=== PATIENT | female | born 1955 | race Caucasian/White ===

== ENCOUNTER 2016-07-27 09:10 | Emergency (ER) | payer BC ==
[~2016-07-27] VITALS: Ht 151.1 cm; Wt 114.3 kg
[~2016-07-27 09:10] MED LIST: DICL1TAB5 PO; LOSA50TA6 PO; MULT-842 PO; MULT1PAK6 PO; MULTTAB58 PO; SALI1SPR3
[2016-07-27 09:14] VITALS: TEMP 36.7; Ht 151.1 cm; Wt 114.3 kg
[2016-07-27 09:47] LABS: BASO % 0.2 %; BASO ABS # 0.02 K/uL (0-0.2); COMPLETE YES; EOS % 2.1 %; HEMATOCRIT 31.4 % (37-47); IG% 0.3 %; LYMPH % 12.8 %; MEAN CORPUSCULAR HGB CONC 34.1 g/dl (32-36); MEAN PLATELET VOLUME 9.5 fL (7.4-10.4); MONO % 7.3 %; NEUT % 77.3 %; PLATELET COUNT 302 K/uL (130-400); RED BLOOD COUNT 3.45 M/uL (4.2-5.4); WHITE BLOOD COUNT 9.36 K/uL (4.8-10.8)
--- NOTE | 2016-07-27 09:48 | EMERGENCY ROOM VISIT NOTE ---
History Report prepared by D[place]rell: Abhishek Stein Under the Supervision of: Dr. Mario Kapadia D.O. First contact with patient: 09:20 Chief Complaint: ABDOMINAL PAIN Stated Complaint: HERNIA IN THE BELLY AREA History of Present Illness The patient is a 60 year old female who presents to the Emergency Room with complaints of worsening abdominal pain that started around 0700 this morning. She says that she has a hernia and her doctor said that if her pain got bad, that the patient should come here. The patient says she has not seen a surgeon for the hernia due to some apprehension on her part. She says that the pain is around her belly button and radiates across her abdomen. The patient notes that when she got up to go to the bathroom this morning, she started to get a pain on her left flank as well. The pain is described to currently be a 6 out of 10 in severity, but she says the pain is waning and she thinks it is just residual now. The patient denies any nausea, vomiting, chest pain, or shortness of breath. The patient has a history of back surgery for stenosis. She has hypertension. She does not use tobacco products or drink alcohol. Source of History: patient Onset: 0700 this morning Position: abdomen Symptom Intensity: currently a 6/10 in severity Timing: worsening Associated Symptoms: No SOB, No chest pain, No nausea, No vomiting Note: Associated symptoms: Left flank pain. Review of Systems See HPI for pertinent positives & negatives. A total of 10 systems reviewed and were otherwise negative. Past Medical & Surgical Medical Problems: (1) Asthma (2) Hypertension Nos (3) Hypothyroidism Nos (4) Morbid Obesity Surgical Problems: (1) History of back surgery Family History FH: cancer FH: diabetes mellitus FH: hypertension Social History Smoking Status: Never Smoker Alcohol Use: none Marital Status: Occupation Status: unemployed, disabled Current/Historical Medications Scheduled Albuterol Hfa (Ventolin Hfa), 1 PUFF INH Q4 Chlorthalidone (Hygroton), 25 MG PO HS Dextromethorphan-Guaifenesin (Robitussin Cough+Chest Co 10-200 mg), 2 CAP PO BID Fluticasone Propionate (Nasal) (Flonase Allergy Relief), 2 SPRAY LYNN DAILY Losartan Potassium (Cozaar), 100 MG PO HS Saline (Saline Nasal [place]), Unknown Dose NA DAILY Scheduled PRN Diclofenac (Voltaren ), 50 MG PO BID PRN for Pain Allergies Coded Allergies: Penicillins (Verified Allergy, Mild, RASH, 07/27/16) Physical Exam Vital Signs Date Time Temp Pulse Resp B/P Pulse Ox O2 Delivery O2 Flow Rate FiO2 07/27/16 12:57 89 18 149/91 98 Room Air 07/27/16 11:17 76 18 144/84 97 07/27/16 09:14 36.7 91 18 159/86 97 Room Air Physical Exam GENERAL: Patient is awake, alert, and in no acute distress. Patient is resting comfortably and showing no signs of anxiety EYES: The conjunctivae are clear. The pupils are round and reactive. EARS, NOSE, MOUTH AND THROAT: The nose is without any evidence of any deformity. Mucous membranes are moist tongue is midline NECK: The neck is nontender and supple. RESPIRATORY: Normal respiratory effort is noted there is no evidence of wheezing rhonchi or rales CARDIOVASCULAR: Regular rate and rhythm noted there no murmurs rubs or gallops normal S1 normal S2 GASTROINTESTINAL: The abdomen was mildly distended but soft. Umbilical hernia noted, which was nontender. Left lower quadrant tenderness to palpation, but no guarding or rigidity. MUSCULOSKELETAL/EXTREMITIES: There is no evidence of gross deformity full range of motion is noted in the hips and shoulders SKIN: There is no obvious evidence of any rash. There are no petechiae, pallor or cyanosis noted. NEUROLOGIC: Patient is awake alert and oriented x3. Medical Decision & Procedures ER Provider Diagnostic Interpretation: Radiology results as stated below per my review and radiologist interpretation: CT OF THE ABDOMEN AND PELVIS WITHOUT CONTRAST CLINICAL HISTORY: Left-sided abdominal pain. Umbilical hernia. COMPARISON STUDY: No previous studies for comparison. TECHNIQUE: Axial images of the abdomen and pelvis were obtained without IV contrast. Images were reviewed in the axial, sagittal, and coronal planes. FINDINGS: Visualized portions of the lower chest demonstrate a small hiatal hernia. There is fatty infiltration of the liver. Unenhanced images of the adrenal glands, spleen and pancreas are normal. Multiple bilateral renal calculi are noted. The largest is a 6 m calculus within the lower pole of the right kidney. There is no hydronephrosis. There are no ureteral calculi. Evaluation is compromised by by streak artifact from lumbar spine hardware. There is a fat-containing umbilical hernia which represents the palpable abnormality. No bowel loops are present within the hernia sac. The defect within the anterior abdominal wall measures 2.3 cm in transverse dimension. Pelvic calcifications represent phleboliths. There is no lymphadenopathy within the abdomen or the pelvis. Colonic diverticulosis is noted without evidence of acute diverticulitis. There is no free air, pneumatosis or portal venous gas. The appendix is likely visualized and is normal. IMPRESSION: 1. Fat-containing umbilical hernia which represents the palpable abnormality. 2. Bilateral nephrolithiasis. No ureteral calculi or hydronephrosis. 3. Fatty liver. 4. Colonic diverticulosis without evidence for acute diverticulitis. Electronically signed by: Shayne Lema M.D. 07/27/2016 10:05 AM Dictated Date/Time: 07/27/2016 9:57 AM SINGLE VIEW CHEST CLINICAL HISTORY: Cough. FINDINGS: An AP, portable, upright chest radiograph is obtained. No prior studies are available for comparison at the time of dictation. The examination is degraded by portable technique, large body habitus, and patient rotation. The heart is top normal for projection. The mediastinal contour is within normal limits. The lungs and pleural spaces are clear. No pneumothorax is seen. The skeletal structures are osteopenic. The bony thorax is grossly intact. Degenerative change is noted in the shoulders and thoracic spine. IMPRESSION: No active disease in the chest. Electronically signed by: Gucci Mcghee M.D. 07/27/2016 10:55 AM Dictated Date/Time: 07/27/2016 10:54 AM Laboratory Results 07/27/16 09:30 Red Blood Count 3.45, Mean Corpuscular Volume 91.0, Mean Corpuscular Hemoglobin 31.0, Mean Corpuscular Hemoglobin Concent 34.1, Mean Platelet Volume 9.5, Neutrophils (%) (Auto) 77.3, Lymphocytes (%) (Auto) 12.8, Monocytes (%) (Auto) 7.3, Eosinophils (%) (Auto) 2.1, Basophils (%) (Auto) 0.2, Neutrophils # (Auto) 7.23, Lymphocytes # (Auto) 1.20, Monocytes # (Auto) 0.68, Eosinophils # (Auto) 0.20, Basophils # (Auto) 0.02 07/27/16 09:30 Test 07/27/16 09:30 07/27/16 10:00 White Blood Count 9.36 K/uL (4.8-10.8) Red Blood Count 3.45 M/uL (4.2-5.4) Hemoglobin 10.7 g/dL (12.0-16.0) Hematocrit 31.4 % (37-47) Mean Corpuscular Volume 91.0 fL (80-100) Mean Corpuscular Hemoglobin 31.0 pg (25-34) Mean Corpuscular Hemoglobin Concent 34.1 g/dl (32-36) Platelet Count 302 K/uL (130-400) Mean Platelet Volume 9.5 fL (7.4-10.4) Neutrophils (%) (Auto) 77.3 % Lymphocytes (%) (Auto) 12.8 % Monocytes (%) (Auto) 7.3 % Eosinophils (%) (Auto) 2.1 % Basophils (%) (Auto) 0.2 % Neutrophils # (Auto) 7.23 K/uL (1.4-6.5) Lymphocytes # (Auto) 1.20 K/uL (1.2-3.4) Monocytes # (Auto) 0.68 K/uL (0.11-0.59) Eosinophils # (Auto) 0.20 K/uL (0-0.5) Basophils # (Auto) 0.02 K/uL (0-0.2) RDW Standard Deviation 42.8 fL (36.4-46.3) RDW Coefficient of Variation 12.8 % (11.5-14.5) Immature Granulocyte % (Auto) 0.3 % Immature Granulocyte # (Auto) 0.03 K/uL (0.00-0.02) Anion Gap 8.0 mmol/L (3-11) Est Creatinine Clear Calc Drug Dose 61.3 ml/min Estimated GFR () 62.8 Estimated GFR (Non- 54.1 BUN/Creatinine Ratio 21.5 (10-20) Calcium Level 9.3 mg/dl (8.5-10.1) Total Bilirubin 0.5 mg/dl (0.2-1) Direct Bilirubin 0.1 mg/dl (0-0.2) Aspartate Amino Transf (AST/SGOT) 17 U/L (15-37) Alanine Aminotransferase (ALT/SGPT) 26 U/L (12-78) Alkaline Phosphatase 115 U/L (45-117) Total Protein 8.0 gm/dl (6.4-8.2) Albumin 3.8 gm/dl (3.4-5.0) Lipase 149 U/L (73-393) Chemistry Specimen Hemolysis Urine Color YELLOW Urine Appearance CLEAR (CLEAR) Urine pH 5.0 (4.5-7.5) Urine Specific [place] 1.013 (1.000-1.030) Urine Protein NEG (NEG) Urine Glucose (UA) NEG (NEG) Urine Ketones NEG (NEG) Urine Occult Blood NEG (NEG) Urine Nitrite NEG (NEG) Urine Bilirubin NEG (NEG) Urine Urobilinogen NEG (NEG) Urine Leukocyte Esterase NEG (NEG) Laboratory results per my review. Medications Administered Medications (Trade) Dose Ordered Sig/Kavya Route Start Time Stop Time Status Last Admin Dose Admin Sodium Chloride (Nss 1000ml) 1,000 ml @ 999 mls/hr Q1H1M STAT IV 07/27/16 10:34 07/27/16 11:34 DC 07/27/16 10:46 999 MLS/HR ED Course 0924: The patient was evaluated in room A4B. A complete history and physical examination were performed. 1034: Ordered NSS 1000 ml @ 999 mls/hr IV. 1144: I reevaluated and updated the patient. 1148: I discussed the patient with Pamela Patel PA-C - surgery - she will come see the patient. 1252: I discussed the patient with Dr. Omkar AGRAWAL surgery. 1253: Upon reevaluation, the patient is resting comfortably. I discussed the results and treatment plan with her. She verbalized agreement of the treatment plan. She was discharged home. Medical Decision Triage Nursing notes reviewed. Differential diagnosis: Etiologies such as appendicitis, diverticulitis, PUD, biliary pathology, UTI, pancreatitis, obstruction, mesenteric ischemia, aortic pathology, infections, inflammatory bowel disease, renal colic, as well as others were entertained. The patient is a 60-year-old female who presented to the emergency department for an evaluation of abdominal pain. The patient has a history of an umbilical hernia. She also has been suffering with an upper respiratory infection for the last 3 weeks and is been coughing. The patient felt that she had significant increase in the pain in her umbilical hernia. This pain significantly improved prior to arrival. She does not describe an incarcerated hernia but the degree of pain made us concerned that she may have an incarcerated hernia at least one point. I discussed the patient's laboratory and radiographic studies with her. She was treated with IV fluids in the emergency department but did not wish to have any pain medication. The patient was found have anemia and I'm unsure where this is coming from. She denies having any black stool or bloody stool. The patient also had a mild elevation in her creatinine. I discussed her case with the on-call surgical group. They've agreed to evaluate the patient in emergency department for further management and disposition. Consults Time Called: 1148 Consulting Physician: Pamela Patel PA-C - surgery Returned Call: [phone] I discussed the patient with Pamela Patel PA-C - surgery - she will come see the patient. Additional Consults: Time Called: -- Consulted Physician: Dr. Omkar PELAEZ surgery Returned Call: [phone] Additional Comments: I discussed the patient with Dr. Omkar PELAEZ surgery. Impression Primary Impression: Umbilical hernia Additional Impressions: Anemia Dehydration Scribe Attestation The scribe's documentation has been prepared under my direction and personally reviewed by me in its entirety. I confirm that the note above accurately reflects all work, treatment, procedures, and medical decision making performed by me. Departure Information Dispostion Home / Self-Care Prescriptions Albuterol Hfa (VENTOLIN HFA) 200 Puffs/38889 Mcg Aers 1 PUFF INH Q4, #1 INHALER Prov: Mario Kapadia, 07/27/16 Referrals Pamela Yoo PA-C (PCP) Alicia Espitia MD Forms HOME CARE DOCUMENTATION FORM, IMPORTANT VISIT INFORMATION, Work Instructions Patient Instructions Hernia, My [facility] Additional Instructions Follow-up with the surgeon this week as scheduled. Continue all medications as prescribed. Follow-up with your family this week as well. I would recommend a repeat CBC as well as a repeat electrolyte panel to follow-up your hemoglobin and your creatinine both of which were abnormal today in the ER. Problem Qualifiers
--- NOTE | 2016-07-27 10:07 | DIAGNOSTIC IMAGING REPORT ---
CT OF THE ABDOMEN AND PELVIS WITHOUT CONTRAST CLINICAL HISTORY: Left-sided abdominal pain. Umbilical hernia. COMPARISON STUDY: No previous studies for comparison. TECHNIQUE: Axial images of the abdomen and pelvis were obtained without IV contrast. Images were reviewed in the axial, sagittal, and coronal planes. FINDINGS: Visualized portions of the lower chest demonstrate a small hiatal hernia. There is fatty infiltration of the liver. Unenhanced images of the adrenal glands, spleen and pancreas are normal. Multiple bilateral renal calculi are noted. The largest is a 6 m calculus within the lower pole of the right kidney. There is no hydronephrosis. There are no ureteral calculi. Evaluation is compromised by by streak artifact from lumbar spine hardware. There is a fat-containing umbilical hernia which represents the palpable abnormality. No bowel loops are present within the hernia sac. The defect within the anterior abdominal wall measures 2.3 cm in transverse dimension. Pelvic calcifications represent phleboliths. There is no lymphadenopathy within the abdomen or the pelvis. Colonic diverticulosis is noted without evidence of acute diverticulitis. There is no free air, pneumatosis or portal venous gas. The appendix is likely visualized and is normal. IMPRESSION: 1. Fat-containing umbilical hernia which represents the palpable abnormality. 2. Bilateral nephrolithiasis. No ureteral calculi or hydronephrosis. 3. Fatty liver. 4. Colonic diverticulosis without evidence for acute diverticulitis. Electronically signed by: Shayne Lema M.D. 07/27/2016 10:05 AM Dictated Date/Time: 07/27/2016 9:57 AM
[2016-07-27 10:15] LABS: BUN/CREATININE RATIO 21.5 (10-20); CALCIUM 9.3 mg/dl (8.5-10.1); POTASSIUM 3.8 mmol/L (3.5-5.1)
[2016-07-27] MEDS ORDERED: FLUT0.15 NAE (10:23)
[2016-07-27] MEDS ORDERED: DEXT1CAP PO (10:23)
[2016-07-27] MEDS ORDERED: HYG/25 PO (10:23)
[2016-07-27 10:33] LABS: CREATININE 1.1 mg/dl (0.60-1.20)
[2016-07-27] MEDS ORDERED: SODIUM CHLORIDE 0.9% 1000ML 1,000 ML IV STA (10:34)
--- NOTE | 2016-07-27 10:57 | DIAGNOSTIC IMAGING REPORT ---
SINGLE VIEW CHEST CLINICAL HISTORY: Cough. FINDINGS: An AP, portable, upright chest radiograph is obtained. No prior studies are available for comparison at the time of dictation. The examination is degraded by portable technique, large body habitus, and patient rotation. The heart is top normal for projection. The mediastinal contour is within normal limits. The lungs and pleural spaces are clear. No pneumothorax is seen. The skeletal structures are osteopenic. The bony thorax is grossly intact. Degenerative change is noted in the shoulders and thoracic spine. IMPRESSION: No active disease in the chest. Electronically signed by: Gucci Mcghee M.D. 07/27/2016 10:55 AM Dictated Date/Time: 07/27/2016 10:54 AM
[2016-07-27 11:00] LABS: URINE APPEARANCE CLEAR (CLEAR); URINE BILIRUBIN NEG (NEG); URINE COLOR YELLOW; URINE NITRITE NEG (NEG); URINE SPECIFIC GRAVITY 1.013 (1.000-1.030); UROBILINOGEN NEG (NEG)
[2016-07-27 11:01] LABS: MANUAL MICROSCOPIC REQUIRED? NO; REVIEW REQ? NO
[2016-07-27 12:57] VITALS: BP 149/91; PULSE 89; O2SAT 98
[2016-07-27] MEDS ORDERED: VNTHFA/IN INH (13:01)
--- NOTE | 2016-07-27 13:03 | Surgery Consultation ---
Consultation Date of Consultation: Jul 27, 2016. Attending Physician: Reason for Consultation: Umbilical hernia, abdominal pain History of Present Illness Sadia is a 60 year-old female who presented to emergency department this morning complaining of abdominal pain located at belly button. Sadia states she has a belly button hernia and was told by her primary care doctor to present to emergency department if the pain got severe. States this morning she has 8/10 pain at the belly button. She has a cold and has been coughing recently and felt she may of had an incarcerated hernia. No changes in bowel habits. No fevers, chills, nausea, or vomiting. States she would like to have the hernia repaired. Past Medical/Surgical History Medical Problems: (1) Anemia Status: Acute (2) Asthma Status: Chronic (3) Dehydration Status: Acute (4) Umbilical hernia Status: Acute Family History FH: cancer FH: diabetes mellitus FH: hypertension Social History Smoking Status: Never Smoker Marital Status: Occupation Status: unemployed, disabled Allergies Coded Allergies: Penicillins (Verified Allergy, Mild, RASH, 07/27/16) Home Medications Scheduled Albuterol Hfa (Ventolin Hfa), 1 PUFF INH Q4 Chlorthalidone (Hygroton), 25 MG PO HS Dextromethorphan-Guaifenesin (Robitussin Cough+Chest Co 10-200 mg), 2 CAP PO BID Fluticasone Propionate (Nasal) (Flonase Allergy Relief), 2 SPRAY LYNN DAILY Losartan Potassium (Cozaar), 100 MG PO HS Saline (Saline Nasal [place]), Unknown Dose NA DAILY Scheduled PRN Diclofenac (Voltaren ), 50 MG PO BID PRN for Pain Review of Systems Constitutional: No chills, No fever, No sweats Respiratory: + cough, No shortness of breath Cardiovascular: No chest pain Abdomen: + pain, No constipation, No diarrhea, No nausea, No vomiting Genitourinary - Female: No dysuria Integumentary: No rash Physical Exam Date Time Temp Pulse Resp B/P Pulse Ox O2 Delivery O2 Flow Rate FiO2 07/27/16 11:17 76 18 144/84 97 07/27/16 09:14 36.7 91 18 159/86 97 Room Air General Appearance: WD/WN, no apparent distress Head: normocephalic, atraumatic Eyes: sclerae normal ENT: hearing grossly normal Respiratory/Chest: no respiratory distress, no accessory muscle use Abdomen/GI: soft, + pertinent finding (Umbilical hernia, reducible, nonincarcerated, no overlying erythema or ecchymosis) Neurologic/Psych: alert, normal mood/affect, oriented x 3 Skin: normal color, warm/dry, no rash Laboratory Results Last 24 Hours Test 07/27/16 09:30 07/27/16 10:00 White Blood Count 9.36 K/uL Red Blood Count 3.45 M/uL Hemoglobin 10.7 g/dL Hematocrit 31.4 % Mean Corpuscular Volume 91.0 fL Mean Corpuscular Hemoglobin 31.0 pg Mean Corpuscular Hemoglobin Concent 34.1 g/dl Platelet Count 302 K/uL Mean Platelet Volume 9.5 fL Neutrophils (%) (Auto) 77.3 % Lymphocytes (%) (Auto) 12.8 % Monocytes (%) (Auto) 7.3 % Eosinophils (%) (Auto) 2.1 % Basophils (%) (Auto) 0.2 % Neutrophils # (Auto) 7.23 K/uL Lymphocytes # (Auto) 1.20 K/uL Monocytes # (Auto) 0.68 K/uL Eosinophils # (Auto) 0.20 K/uL Basophils # (Auto) 0.02 K/uL RDW Standard Deviation 42.8 fL RDW Coefficient of Variation 12.8 % Immature Granulocyte % (Auto) 0.3 % Immature Granulocyte # (Auto) 0.03 K/uL Sodium Level 138 mmol/L Potassium Level 3.8 mmol/L Chloride Level 102 mmol/L Carbon Dioxide Level 28 mmol/L Anion Gap 8.0 mmol/L Blood Urea Nitrogen 24 mg/dl Creatinine 1.10 mg/dl Est Creatinine Clear Calc Drug Dose 61.3 ml/min Estimated GFR () 62.8 Estimated GFR (Non- 54.1 BUN/Creatinine Ratio 21.5 Random Glucose 113 mg/dl Calcium Level 9.3 mg/dl Total Bilirubin 0.5 mg/dl Direct Bilirubin 0.1 mg/dl Aspartate Amino Transf (AST/SGOT) 17 U/L Alanine Aminotransferase (ALT/SGPT) 26 U/L Alkaline Phosphatase 115 U/L Total Protein 8.0 gm/dl Albumin 3.8 gm/dl Lipase 149 U/L Chemistry Specimen Hemolysis Urine Color YELLOW Urine Appearance CLEAR Urine pH 5.0 Urine Specific [place] 1.013 Urine Protein NEG Urine Glucose (UA) NEG Urine Ketones NEG Urine Occult Blood NEG Urine Nitrite NEG Urine Bilirubin NEG Urine Urobilinogen NEG Urine Leukocyte Esterase NEG CT OF THE ABDOMEN AND PELVIS WITHOUT CONTRAST CLINICAL HISTORY: Left-sided abdominal pain. Umbilical hernia. COMPARISON STUDY: No previous studies for comparison. TECHNIQUE: Axial images of the abdomen and pelvis were obtained without IV contrast. Images were reviewed in the axial, sagittal, and coronal planes. FINDINGS: Visualized portions of the lower chest demonstrate a small hiatal hernia. There is fatty infiltration of the liver. Unenhanced images of the adrenal glands, spleen and pancreas are normal. Multiple bilateral renal calculi are noted. The largest is a 6 m calculus within the lower pole of the right kidney. There is no hydronephrosis. There are no ureteral calculi. Evaluation is compromised by by streak artifact from lumbar spine hardware. There is a fat-containing umbilical hernia which represents the palpable abnormality. No bowel loops are present within the hernia sac. The defect within the anterior abdominal wall measures 2.3 cm in transverse dimension. Pelvic calcifications represent phleboliths. There is no lymphadenopathy within the abdomen or the pelvis. Colonic diverticulosis is noted without evidence of acute diverticulitis. There is no free air, pneumatosis or portal venous gas. The appendix is likely visualized and is normal. IMPRESSION: 1. Fat-containing umbilical hernia which represents the palpable abnormality. 2. Bilateral nephrolithiasis. No ureteral calculi or hydronephrosis. 3. Fatty liver. 4. Colonic diverticulosis without evidence for acute diverticulitis. Assessment & Plan Umbilical Hernia -vitals stable - CT scan showing fat containing umbilical hernia, no incarceration or involving bowel - Abdominal pain improving - reducible on examination Plan: Plan for patient to follow-up with Dr. Espitia as an outpatient this Wednesday to schedule for elective umbilical hernia repair with or without mesh. Thank you for the consultation and involving us in the care of this patient. Dr. Espitia has seen and examined patient, developed assessment and plan.
[2016-09-15] MEDS ORDERED: SALI1SPR3 NAE (09:51)
[2016-09-23] MEDS ORDERED: HYDR-5688 PO (06:05)
[2016-09-23] MEDS ORDERED: CIPR-255 PO (06:05)
== END 2016-07-27 13:18 | disposition home or self-care (01) ==
LOC: C.EDB 09:12 → C.EDA 13:18
DX: K42.9 Umbilical hernia without obstruction or gangrene (principal); D64.9 Anemia, unspecified; E86.0 Dehydration; I10 Essential (primary) hypertension; J45.909 Unspecified asthma, uncomplicated; E03.9 Hypothyroidism, unspecified; E66.01 Morbid (severe) obesity due to excess calories; Z68.43 Body mass index [BMI] 50.0-59.9, adult; Z80.9 Family history of malignant neoplasm, unspecified; Z83.3 Family history of diabetes mellitus; Z82.49 Family history of ischemic heart disease and other diseases of the circulatory system; Z79.899 Other long term (current) drug therapy

== ENCOUNTER 2016-09-21 06:20 | Inpatient (IN) | payer BC, OTHER ==
[2016-09-15 09:43] VITALS: BMI 51.0
--- NOTE | 2016-09-15 10:13 | PAT Medication Instructions ---
Service Date September 15, 2016. Current Home Medication List Chlorthalidone (Hygroton), 25 MG PO HS Diclofenac (Voltaren ), 50 MG PO BID PRN for Pain Losartan Potassium (Cozaar), 100 MG PO HS Saline (Saline Nasal [place]), 1 SPRAY LYNN DAILY PRN for PRN Medication Instructions For Your Scheduled Surgery - Hold the following medications the morning of surgery: Diclofenac (Voltaren ), 50 MG PO BID PRN for Pain (otherwise okay to continue per surgeon) - Take the following medications the morning of surgery: Saline (Saline Nasal [place]), 1 SPRAY LYNN DAILY PRN for PRN - Take the following medications as scheduled the night before surgery: Chlorthalidone (Hygroton), 25 MG PO HS Saline (Saline Nasal [place]), 1 SPRAY LYNN DAILY PRN for PRN Diclofenac (Voltaren ), 50 MG PO BID PRN for Pain - Do not take the following the evening prior to surgery: Losartan Potassium (Cozaar), 100 MG PO HS Nothing to eat or drink after midnight If you have any questions please call us at [phone] or [phone] or [phone]
[2016-09-15 10:59] LABS: BASO % 0.4 %; BASO ABS # 0.03 K/uL (0-0.2); COMPLETE YES; EOS % 4.3 %; HEMATOCRIT 31.2 % (37-47); IG% 0.2 %; LYMPH % 16.5 %; LYMPH ABS # 1.34 K/uL (1.2-3.4); MEAN CELL VOLUME 93.7 fL (80-100); MEAN CORPUSCULAR HEMOGLOBIN 31.8 pg (25-34); MEAN PLATELET VOLUME 10.5 fL (7.4-10.4); MONO % 7.3 %; NEUT % 71.3 %; PLATELET COUNT 274 K/uL (130-400); RED BLOOD COUNT 3.33 M/uL (4.2-5.4)
[2016-09-21] VITALS (8 sets, daily range): BP systolic 114–148; BP diastolic 68–79; PULSE 71–92; TEMP 36.4–36.8; O2SAT 94–97; Ht 149.9 cm; Wt 114.2 kg
[~2016-09-21] VITALS: Ht 149.9 cm; Wt 114.2 kg
[~2016-09-21 06:20] MED LIST changes: +CLINDAMYCIN 900MG IV SCH; +CLINDAMYCIN IV 900 MG in DEXTROSE 5% ADD-VANTAGE 100ML 100 ML IV SCH; +HYG/25 PO; +LACTATED RINGER'S 1000ML 1,000 ML IV SCH; -MULT-842 PO; -MULT1PAK6 PO; -MULTTAB58 PO; -SALI1SPR3; +SALI1SPR3 NAE
[2016-09-21] MEDS ORDERED: EpHEDrine SULFATE INJ 50 MG/ML AMP IV PRN (07:00)
[2016-09-21] MEDS ORDERED: ATROPINE SULFATE 0.1 MG/ML 5ML SYR IV PRN (07:00)
[2016-09-21] MEDS ORDERED: ONDANSETRON INJ 2 MG/ML 2 ML VIAL IV PRN (07:00)
[2016-09-21] MEDS ORDERED: MIDAZOLAM HCL 1 MG/ML 2ML VIAL ONE (07:26)
[2016-09-21] MEDS ORDERED: ROCURONIUM BROMIDE 10 MG/ML 5 ML VIAL ONE (07:26)
[2016-09-21] MEDS ORDERED: FENTANYL CITRATE INJ 50 MCG/1 ML 2 ML VIAL ONE ×2 (07:26)
[2016-09-21] MEDS ORDERED: PROPOFOL IV EMULSION 10 MG/ML 20 ML VIAL IV ONE (07:26)
[2016-09-21] MEDS ORDERED: GLYCOPYRROLATE INJ 0.2 MG/ML VIAL ONE ×2 (07:26→09:21)
[2016-09-21] MEDS ORDERED: DEXAMETHASONE SOD INJ 4 MG/ML VIAL ONE (07:26)
[2016-09-21] MEDS ORDERED: LIDOCAINE HCL 2% 2 ML VIAL (20MG/ML) ONE (07:26)
[2016-09-21] MEDS ORDERED: NEOSTIGMINE METHYLSULFATE 5 MG/5 ML SYR ONE (07:26)
[2016-09-21] MEDS ORDERED: ONDANSETRON INJ 2 MG/ML 2 ML VIAL ONE (07:26)
--- NOTE | 2016-09-21 08:29 | History & Physical Bridge Note ---
H&P Re-Evaluation Bridge Note: I have examined the patient, reviewed the History & Physical and in the interval since the performance of the History & Physical I have noted the following changes of clinical significance: No changes noted
[2016-09-21] MEDS ORDERED: CEFAZOLIN SOD 1 GM VIAL ONE (08:45)
[2016-09-21] MEDS ORDERED: BUPIVACAINE 0.5 % 5 MG/1 ML MPF 30ML VIAL ONE (08:54)
[2016-09-21] MEDS ORDERED: EpHEDrine SULFATE 50MG/5ML SYR ONE (09:21)
[2016-09-21] MEDS ORDERED: SUCCINYLCHOLINE CHLORIDE 20 MG/ML 10 ML VIAL IV ONE (09:23)
--- NOTE | 2016-09-21 09:46 | [facility] Post Operative Brief Note ---
Immediate Operative Summary Operative Date Sep 21, 2016. Pre-Operative Diagnosis Umbilical Hernia Post-Operative Diagnosis Umbilical Hernia Procedure(s) Performed Open repair umbilical hernia with mesh Surgeon Dr. Johnson Embossed Or Impressed Lettering Painter Surgeon(s) Ayse Chavez PA-C Estimated Blood Loss 10cc Findings 3-4 cm defect, used 8 cm C-Qur mesh Specimens A) Hernia contents and hernia sac Drains # 15 Rd IGLESIA to sub cu Anesthesia gen Complication(s) None Disposition Recovery Room / PACU
[2016-09-21] MEDS ORDERED: HYDROmorphone INJ 1 MG/ML SYR IV PRN ×2 (10:00)
[2016-09-21] MEDS ORDERED: HYDROCODONE/ACETAMOPHEN 5/325MG TAB PO PRN ×2 (10:00)
[2016-09-21] MEDS ORDERED: PROMETHAZINE HCL INJ 25 MG in SODIUM CHLORIDE 0.9% 50ML 50 ML IV PRN (10:00)
[2016-09-21] MEDS: FENTANYL CITRATE INJ 50 MCG/1 ML 2 ML VIAL IV PRN ×4 (10:09→10:24)
--- NOTE | 2016-09-21 10:34 | Anesthesiology Progress Note ---
Anesthesia Post Op Note Date & Time Sep 21, 2016 at 10:34 Vital Signs Pain Intensity: 2 Vital Signs Past 12 Hours Date Time Temp Pulse Resp B/P (MAP) Pulse Ox O2 Delivery O2 Flow Rate FiO2 09/21/16 10:28 73 14 09/21/16 10:28 74 14 97 09/21/16 10:27 128/75 09/21/16 10:23 77 19 09/21/16 10:23 36.6 68 16 136/75 (89) 98 Mask 2 09/21/16 10:23 78 19 99 09/21/16 10:22 136/75 09/21/16 10:18 70 12 09/21/16 10:18 70 12 99 09/21/16 10:17 140/77 09/21/16 10:14 72 12 09/21/16 10:14 72 12 98 09/21/16 10:12 137/77 09/21/16 10:09 75 12 98 09/21/16 10:09 75 12 09/21/16 10:07 145/86 09/21/16 10:04 85 14 09/21/16 10:04 85 14 100 09/21/16 10:02 146/76 09/21/16 09:59 95 14 09/21/16 09:59 96 14 100 09/21/16 09:57 148/81 09/21/16 09:56 141/85 09/21/16 09:54 36.6 12 141/85 100 Mask 10 Notes Mental Status: alert / awake / arousable, participated in evaluation Pt Amnestic to Procedure: Yes Nausea / Vomiting: adequately controlled Pain: adequately controlled Airway Patency, RR, SpO2: stable & adequate BP & HR: stable & adequate Hydration State: stable & adequate Anesthetic Complications: no major complications apparent
[2016-09-21] MEDS ORDERED: DEXTROSE 50% 50 ML SYR IV PRN (11:45)
[2016-09-21] MEDS ORDERED: GLUCOSE 40% GEL 15 GM TUBE PO PRN (11:45)
[2016-09-21] MEDS ORDERED: PROMETHAZINE HCL INJ 12.5 MG in SODIUM CHLORIDE 0.9% 50ML 50 ML IV PRN (11:45)
[2016-09-21] MEDS ORDERED: HydrALAZINE HCL 20 MG/ML VIAL IV. PRN (11:45)
[2016-09-21] MEDS ORDERED: GLUCOSE 10 TABS/TUBE PO PRN (11:45)
[2016-09-21] MEDS ORDERED: GLUCAGON FOR INJ 1 MG VIAL SQ PRN (11:45)
[2016-09-21] MEDS ORDERED: LACTATED RINGER'S 1000ML 1,000 ML IV SCH (11:45)
[2016-09-21] MEDS: ONDANSETRON INJ 2 MG/ML 2 ML VIAL IV PRN ×2 (11:47→17:46)
--- NOTE | 2016-09-21 11:59 | Medical Consult ---
Consultation Date of Consultation: Sep 21, 2016. Attending Physician: Elgin Johnson M.D. Reason for Consultation: Medical management History of Present Illness This is a 61 y/o female with a history of hypertension, diabetes mellitus type 2 , and arthritis who presents s/p umbilical hernia repair with mesh with Dr. Johnson on 09/21 for medical management. The patient complains of a 6/10 dull aching pain in her umbilical area and right lower quadrant. She also complains of nausea but denies any vomiting. Patient has not yet eaten, passed gas, or urinated postoperatively. The patient denies fevers, chills, sweats, chest pain , palpitations, claudication, cough, wheezing, shortness of breath, vomiting, dysuria, hematuria, urinary retention, paralysis, weakness, numbness and tingling. Past Medical/Surgical History Medical Problems: (1) Anemia Status: Chronic (2) Asthma Status: Chronic (3) Dehydration Status: Resolved (4) Umbilical hernia Status: Resolved Diabetes mellitus type 2 HTN Arthritis Family History FH: cancer FH: diabetes mellitus FH: hypertension Social History Smoking Status: Never Smoker Smokeless Tobacco Use: No Alcohol Use: none Marital Status: Housing Status: lives with significant other Occupation Status: retired Allergies Coded Allergies: Penicillins (Verified Allergy, Mild, RASH, 09/21/16) Metformin (Verified Adverse Reaction, Unknown, SEVERE GI UPSET, 09/21/16) Morphine (Verified Adverse Reaction, Unknown, VOMITING, 09/21/16) Current Inpatient Medications Current Inpatient Medications Medications (Trade) Dose Ordered Sig/Kavya Route Start Time Stop Time Status Last Admin Dose Admin Lactated Ringer's 1,000 ml @ 15 mls/hr Q24H IV 09/21/16 06:00 09/21/16 18:00 Clindamycin Phosphate 900 mg/ Dextrose 106 ml @ 106 mls/hr PREOP IV 09/21/16 06:00 09/21/16 18:00 09/21/16 08:31 106 MLS/HR Fentanyl Citrate (Fentanyl Inj) 25 mcg Q5M PRN IV 09/21/16 07:00 09/21/16 12:00 09/21/16 10:24 25 MCG Ondansetron HCl (Zofran Inj) 4 mg ONE PRN IV 09/21/16 07:00 09/21/16 12:00 Ephedrine Sulfate (EpHEDrine SULFATE INJ) 5 mg Q5M PRN IV 09/21/16 07:00 09/21/16 12:00 Atropine Sulfate (Atropine Sulfate 0.1MG/Ml Inj) 0.5 mg Q1M PRN IV 09/21/16 07:00 09/21/16 12:00 Chlorthalidone (Hygroton Tab) 25 mg HS PO 09/21/16 21:00 10/21/16 20:59 Future Hold Losartan Potassium (coZAAR TAB) 100 mg HS PO 09/21/16 21:00 10/21/16 20:59 Future Hold Lactated Ringer's 1,000 ml @ 50 mls/hr Q20H IV 09/21/16 11:45 10/21/16 11:44 Clindamycin Phosphate 600 mg/ Dextrose 54 ml @ 100 mls/hr Q8@0000,0800,1600 IV 09/21/16 16:00 10/01/16 15:59 Acetaminophen/ Hydrocodone Bitart ([employer] 5/325 Tab) 1 tab Q4 PRN PO 09/21/16 10:00 10/05/16 09:59 Acetaminophen/ Hydrocodone Bitart ([employer] 5/325 Tab) 2 tab Q4 PRN PO 09/21/16 10:00 10/05/16 09:59 Promethazine HCl 25 mg/Sodium Chloride 51 ml @ 204 mls/hr Q6H PRN IV 09/21/16 10:00 10/21/16 09:59 Ondansetron HCl (Zofran Inj) 4 mg Q6H PRN IV 09/21/16 10:00 10/21/16 09:59 Senna/Docusate Sodium (Senokot S Tab) 1 tab BID PO 09/21/16 13:00 10/21/16 12:59 Hydromorphone HCl (Dilaudid Inj) 0.5 mg Q3H PRN IV 09/21/16 10:00 10/05/16 09:59 Hydromorphone HCl (Dilaudid Inj) 1 mg Q3H PRN IV 09/21/16 10:00 10/05/16 09:59 Promethazine HCl 12.5 mg/Sodium Chloride 50.5 ml @ 204 mls/hr Q6H PRN IV 09/21/16 11:45 10/21/16 11:44 Insulin Aspart (novoLOG ASPART) SLIDING SCALE If C... ACHS SC 09/21/16 12:00 10/21/16 11:59 UNV Glucose (Glucose 40% Gel) 15-30 GRAMS 15 GRAMS... UD PRN PO 09/21/16 11:45 10/21/16 11:44 UNV Glucose (Glucose Chew Tab) 4-8 Tablets 4 Tabl... UD PRN PO 09/21/16 11:45 10/21/16 11:44 UNV Dextrose (Dextrose 50% 50ML Syringe) 25-50ML OF 50% DW IV FOR... UD PRN IV 09/21/16 11:45 10/21/16 11:44 UNV Glucagon (Glucagon Inj) 1 mg UD PRN SQ 09/21/16 11:45 10/21/16 11:44 UNV Hydralazine HCl (HydrALAZINE INJ) 10 mg Q6H PRN IV. 09/21/16 11:45 10/21/16 11:44 UNV Review of Systems See HPI for pertinent positives and negatives. All other systems reviewed and negative. Physical Exam Date Time Temp Pulse Resp B/P (MAP) Pulse Ox O2 Delivery O2 Flow Rate FiO2 09/21/16 10:55 Nasal Cannula 2.0 09/21/16 10:55 36.8 73 16 148/75 (99) 97 Nasal Cannula 2.0 09/21/16 10:55 97 Nasal Cannula 2.0 09/21/16 10:39 76 13 09/21/16 10:39 75 13 95 09/21/16 10:37 127/71 09/21/16 10:34 68 12 96 09/21/16 10:34 68 12 09/21/16 10:32 128/72 09/21/16 10:29 71 12 09/21/16 10:29 70 12 98 09/21/16 10:28 73 14 09/21/16 10:28 74 14 97 09/21/16 10:27 128/75 09/21/16 10:23 77 19 09/21/16 10:23 36.6 68 16 136/75 (89) 98 Mask 2 09/21/16 10:23 78 19 99 09/21/16 10:22 136/75 09/21/16 10:18 70 12 09/21/16 10:18 70 12 99 09/21/16 10:17 140/77 09/21/16 10:14 72 12 09/21/16 10:14 72 12 98 09/21/16 10:12 137/77 09/21/16 10:09 75 12 98 09/21/16 10:09 75 12 09/21/16 10:07 145/86 09/21/16 10:04 85 14 09/21/16 10:04 85 14 100 09/21/16 10:02 146/76 09/21/16 09:59 95 14 09/21/16 09:59 96 14 100 09/21/16 09:57 148/81 09/21/16 09:56 141/85 09/21/16 09:54 36.6 12 141/85 100 Mask 10 General appearance: + Morbidly obese. Well-developed, well-nourished, no apparent distress Head: Normocephalic, atraumatic Eyes: Normal inspection, PERRL, EOMI ENT: Normal ENT inspection, hearing grossly normal, pharynx normal Neck: Supple, no JVD, trachea midline Respiratory/Chest: Lungs clear to auscultation, normal breath sounds, no respiratory distress Cardiovascular: Regular rate & rhythm, no gallop, no murmur Abdomen/GI: + Umbilical region and right lower quadrant TTP. Pt with abdominal binder and drain. Normal bowel sounds, soft Extremities/Musculoskeletal: Normal inspection, no calf tenderness, no pedal edema Neurological/Psych: Alert, normal mood/affect, oriented x 3 Skin: Normal color, warm/dry, no rash Laboratory Results Last 24 Hours Test 09/21/16 06:45 09/21/16 10:05 09/21/16 11:40 09/21/16 11:43 Bedside Glucose 144 mg/dl 158 mg/dl Assessment & Plan 61 y/o female with a history of hypertension, diabetes mellitus type 2, and arthritis who presents s/p umbilical hernia repair with mesh with Dr. Johnson on 09/21 for medical management. -Pain management, DVT prophylaxis, and PT/OT as per primary team -POD #0 HTN--stable -Hold losartan for now until renal function checked and stable. PRP pending -Hold chlorthalidone while on IVF -Cover with hydralazine 10 mg IV q6h prn SBP >180 Diabetes mellitus type 2--Last HgbA1c checked in 2013 was 6.8. Pt not on any meds for this -Insulin sliding scale -Check BSGs q ac and qhs -Check HgbA1c Nausea -Zofran 4 mg IV q6h prn nausea Arthritis--stable -Hold diclofenac for now, pain management per primary team as above Thank you for this consultation. We will continue to follow. Assessment and Plan Attending Addendum: I have physically seen and examined this patient, have directed their medical care, have supervised the physician certified medical technician assistant activities, and agree with the H& P as noted above, with the following changes: NONE
[2016-09-21] MEDS ORDERED: IV FLUIDS COMPLETED PRN (12:15)
[2016-09-21 12:40] LABS: BASO % 0.2 %; BASO ABS # 0.02 K/uL (0-0.2); COMPLETE YES; EOS % 0.5 %; HEMATOCRIT 31.7 % (37-47); IG% 0.3 %; LYMPH % 7.6 %; MEAN CELL VOLUME 93.8 fL (80-100); MEAN CORPUSCULAR HEMOGLOBIN 31.1 pg (25-34); MEAN CORPUSCULAR HGB CONC 33.1 g/dl (32-36); MEAN PLATELET VOLUME 10.1 fL (7.4-10.4); MONO % 1.2 %; NEUT % 90.2 %; PLATELET COUNT 240 K/uL (130-400); RED BLOOD COUNT 3.38 M/uL (4.2-5.4); WHITE BLOOD COUNT 9.26 K/uL (4.8-10.8)
[2016-09-21] MEDS: INSULIN ASPART 100 UNITS/ML 3 ML PEN SC SCH ×3 (12:41→21:46)
[2016-09-21] MEDS: DOCUSATE SODIUM/SENNA 50/8.6MG TAB PO SCH ×2 (12:42→20:24)
--- NOTE | 2016-09-21 12:42 | OPERATIVE REPORT ---
DATE OF OPERATION: 09/21/2016 NAME OF OPERATION: Open umbilical hernia repair. PREOPERATIVE DIAGNOSIS: Umbilical hernia. POSTOPERATIVE DIAGNOSIS: Same with 3-4 cm defect. STAFF SURGEON: Elgin Johnson MD [employer]: Ayse Douglas PA-C ANESTHESIA: General. DESCRIPTION OF PROCEDURE: The patient was brought in the operating room and placed on the operating table in supine position. Her abdomen was prepped and draped in usual fashion. Pneumatic stockings and orogastric tube were placed. A transverse incision was made using 0.5% plain Marcaine to anesthetize the skin and subcutaneous tissue, carrying dissection down easily entering the sac which was relatively large approximately 7-8 cm in diameter. It contained a large amount of omentum. The omentum was constricted at the defect indicated by scar tissue. A significant portion of that omentum was excised, ligating the tissue using 2-0 silk sutures and then the remainder of the omentum easily reduced. The defect was 3-4 cm. The sac was dissected away from the fascia and subcutaneous tissue. The sac was left on the umbilicus. The umbilicus was dissected away from the fascia and then the fascia cleared approximately 3-4 cm around the defect. At this point, an 8 cm piece of C-Qur mesh was obtained and easily placed into the retrofascial space with omentum behind the mesh. Mesh was secured to the fascia using interrupted 0 Ethibond suture and then the remainder of the sac and fascia were able to be closed over the mesh using 0 chromic catgut suture. At this point, a #15 round José Miguel-Tavarez drain was placed in the subcutaneous space, secured to the skin using 3-0 nylon suture. Subcutaneous tissue reapproximated using 2-0 plain catgut suture. The umbilicus was reattached deeply down using 2-0 chromic catgut suture and then the skin reapproximated using 4-0 nylon suture. The patient was transferred to recovery room in stable condition. I attest to the content of the Intraoperative Record and any orders documented therein. Any exception s are noted below.
[2016-09-21 13:17] LABS: ESTIMATED AVERAGE GLUCOSE 154 mg/dl; HA1C FLAG Normal (Normal)
[2016-09-21 13:24] LABS: CALCIUM 8.9 mg/dl (8.5-10.1)
[2016-09-21 13:27] LABS: BUN/CREATININE RATIO 17.2 (10-20); CREATININE 1.2 mg/dl (0.60-1.20); POTASSIUM 3.9 mmol/L (3.5-5.1)
[2016-09-21] MEDS: CLINDAMYCIN IV 600 MG in DEXTROSE 5% ADD-VANTAGE 50ML 50 ML IV SCH ×2 (15:22→23:49)
[2016-09-21] MEDS ORDERED: CHLORTHALIDONE 25 MG TAB PO SCH (21:00)
[2016-09-21] MEDS ORDERED: LOSARTAN POTASSIUM 50 MG TAB PO SCH (21:00)
[2016-09-22 03:15] VITALS: BP 121/73; PULSE 94; TEMP 36.8; O2SAT 92
--- NOTE | 2016-09-22 06:25 | Surgery Progress Note ---
Surgery Progress Note Date of Service Sep 22, 2016. Subjective No nausea, No vomiting awake, alert Objective Vital Signs: Date Time Temp Pulse Resp B/P (MAP) Pulse Ox O2 Delivery O2 Flow Rate FiO2 09/22/16 03:15 36.8 94 18 121/73 (89) 92 Room Air 09/21/16 23:59 Room Air 09/21/16 22:58 36.6 92 18 118/70 (86) 94 Room Air 09/21/16 19:47 36.7 81 18 130/75 (93) 96 Room Air 09/21/16 19:40 36.5 82 18 122/72 (89) 97 Room Air 09/21/16 16:26 36.4 88 18 144/72 (96) 96 Room Air 09/21/16 15:15 Room Air 09/21/16 14:01 92 18 126/73 (90) 09/21/16 13:09 71 137/79 (98) 09/21/16 12:03 36.6 73 16 114/68 (83) 97 Nasal Cannula 2.0 09/21/16 10:55 Nasal Cannula 2.0 09/21/16 10:55 36.8 73 16 148/75 (99) 97 Nasal Cannula 2.0 09/21/16 10:55 97 Nasal Cannula 2.0 09/21/16 10:39 76 13 09/21/16 10:39 75 13 95 09/21/16 10:37 127/71 09/21/16 10:34 68 12 96 09/21/16 10:34 68 12 09/21/16 10:32 128/72 09/21/16 10:29 71 12 09/21/16 10:29 70 12 98 09/21/16 10:28 73 14 09/21/16 10:28 74 14 97 09/21/16 10:27 128/75 09/21/16 10:23 77 19 09/21/16 10:23 36.6 68 16 136/75 (89) 98 Mask 2 09/21/16 10:23 78 19 99 09/21/16 10:22 136/75 09/21/16 10:18 70 12 09/21/16 10:18 70 12 99 09/21/16 10:17 140/77 09/21/16 10:14 72 12 09/21/16 10:14 72 12 98 09/21/16 10:12 137/77 09/21/16 10:09 75 12 98 09/21/16 10:09 75 12 09/21/16 10:07 145/86 09/21/16 10:04 85 14 09/21/16 10:04 85 14 100 09/21/16 10:02 146/76 09/21/16 09:59 95 14 09/21/16 09:59 96 14 100 09/21/16 09:57 148/81 09/21/16 09:56 141/85 09/21/16 09:54 36.6 12 141/85 100 Mask 10 General Appearance: no apparent distress Respiratory/Chest: no respiratory distress Incision(s): intact, drainage (expected from IGLESIA) Laboratory Results: Results Past 24 Hours Test 09/21/16 06:45 09/21/16 10:05 09/21/16 12:07 09/21/16 12:25 Range/Units Bedside Glucose 144 158 218 70-90 mg/dl White Blood Count 9.26 4.8-10.8 K/uL Red Blood Count 3.38 4.2-5.4 M/uL Hemoglobin 10.5 12.0-16.0 g/dL Hematocrit 31.7 37-47 % Mean Corpuscular Volume 93.8 80-100 fL Mean Corpuscular Hemoglobin 31.1 25-34 pg Mean Corpuscular Hemoglobin Concent 33.1 32-36 g/dl Platelet Count 240 130-400 K/uL Mean Platelet Volume 10.1 7.4-10.4 fL Neutrophils (%) (Auto) 90.2 % Lymphocytes (%) (Auto) 7.6 % Monocytes (%) (Auto) 1.2 % Eosinophils (%) (Auto) 0.5 % Basophils (%) (Auto) 0.2 % Neutrophils # (Auto) 8.35 1.4-6.5 K/uL Lymphocytes # (Auto) 0.70 1.2-3.4 K/uL Monocytes # (Auto) 0.11 0.11-0.59 K/uL Eosinophils # (Auto) 0.05 0-0.5 K/uL Basophils # (Auto) 0.02 0-0.2 K/uL RDW Standard Deviation 45.1 36.4-46.3 fL RDW Coefficient of Variation 13.2 11.5-14.5 % Immature Granulocyte % (Auto) 0.3 % Immature Granulocyte # (Auto) 0.03 0.00-0.02 K/uL Sodium Level 138 136-145 mmol/L Potassium Level 3.9 3.5-5.1 mmol/L Chloride Level 103 98-107 mmol/L Carbon Dioxide Level 27 21-32 mmol/L Anion Gap 8.0 3-11 mmol/L Blood Urea Nitrogen 21 7-18 mg/dl Creatinine 1.20 0.60-1.20 mg/dl Est Creatinine Clear Calc Drug Dose 55.0 ml/min Estimated GFR () 56.1 Estimated GFR (Non- 48.4 BUN/Creatinine Ratio 17.2 10-20 Random Glucose 202 70-99 mg/dl Estimated Average Glucose 154 mg/dl Hemoglobin A1c 7.0 4.5-5.6 % Calcium Level 8.9 8.5-10.1 mg/dl Hepatitis C Antibody Screen NEG NEG Test 09/21/16 17:14 09/21/16 21:40 09/22/16 04:44 Range/Units Bedside Glucose 180 184 70-90 mg/dl Assessment & Plan 09/22/16- s/p Large umbilical hernia repair with mesh- monitor GI function advance activity, cont IV atbx
[2016-09-22 07:42] VITALS: BP 135/79; PULSE 86; TEMP 36.6; O2SAT 92
[2016-09-22 07:45] VITALS: O2SAT 92
[2016-09-22] MEDS: INSULIN ASPART 100 UNITS/ML 3 ML PEN SC SCH ×4 (08:00→21:35)
--- NOTE | 2016-09-22 09:47 | Anesthesiology Progress Note ---
Anesthesia Post Op Note Date & Time Sep 22, 2016 at 09:46 Vital Signs Pain Intensity: 0.0 Vital Signs Past 12 Hours Date Time Temp Pulse Resp B/P (MAP) Pulse Ox O2 Delivery O2 Flow Rate FiO2 09/22/16 07:45 92 Room Air 09/22/16 07:42 36.6 86 16 135/79 (97) 92 Room Air 09/22/16 03:15 36.8 94 18 121/73 (89) 92 Room Air 09/21/16 23:59 Room Air 09/21/16 22:58 36.6 92 18 118/70 (86) 94 Room Air Notes Mental Status: alert / awake / arousable, participated in evaluation Pt Amnestic to Procedure: Yes Nausea / Vomiting: adequately controlled Pain: adequately controlled Airway Patency, RR, SpO2: stable & adequate BP & HR: stable & adequate Hydration State: stable & adequate Anesthetic Complications: no major complications apparent
[2016-09-22 09:53] LABS: HEMATOCRIT 32.2 % (37-47); MEAN CELL VOLUME 92.8 fL (80-100); MEAN CORPUSCULAR HEMOGLOBIN 30.3 pg (25-34); MEAN CORPUSCULAR HGB CONC 32.6 g/dl (32-36); PLATELET COUNT 298 K/uL (130-400); RED BLOOD COUNT 3.47 M/uL (4.2-5.4)
[2016-09-22] MEDS: CLINDAMYCIN IV 600 MG in DEXTROSE 5% ADD-VANTAGE 50ML 50 ML IV SCH ×3 (09:55→23:34)
[2016-09-22] MEDS: DOCUSATE SODIUM/SENNA 50/8.6MG TAB PO SCH ×2 (10:00→20:34)
[2016-09-22] MEDS: MAGNESIUM HYDROXIDE SUSP 30 ML UDC PO SCH ×2 (10:02→20:36)
[2016-09-22 10:25] LABS: BUN/CREATININE RATIO 16.7 (10-20); CREATININE 1.2 mg/dl (0.60-1.20); POTASSIUM 3.8 mmol/L (3.5-5.1)
--- NOTE | 2016-09-22 11:48 | Progress Note ---
Subjective Date of Service: Sep 22, 2016. Subjective Pt evaluation today including: conversation w/ patient, conversation w/ family , physical exam, chart review, lab review, review of studies, conversation w/ inside sales consultant, review of inpatient medication list Voiding: no voiding problems Doing okay, sitting up in bedside, tolerate diet, reported current abdominal pain is 3 out of 10, No nausea vomiting Problem List Medical Problems: (1) Anemia Status: Acute (2) Asthma Status: Chronic (3) Dehydration Status: Acute (4) Umbilical hernia Status: Acute Review of Systems Constitutional: No fever, No chills, No sweats, No weight loss, No weakness, No fatigue, No problem reported Eyes: No worsening of vision, No eye pain, No redness, No discharge, No diplopia ENT: No hearing loss, No unusual epistaxis, No nasal symptoms, No sore throat, No tinnitus, No dental problems, No trouble swallowing Respiratory: No cough, No sputum, No wheezing, No shortness of breath, No dyspnea on exertion, No dyspnea at rest, No hemoptysis Cardiac: No chest pain, No orthopnea, No PND, No edema, No claudication, No palpitations Abdomen: No pain, No nausea, No vomiting, No diarrhea, No constipation Musculoskeletal: No joint pain, No muscle pain, No swelling, No calf pain Female : No dysuria, No urinary frequency, No hematuria, No incontinence, No abnormal vaginal bleeding, No vaginal discharge Neurologic: No memory loss, No paralysis, No weakness, No numbness/tingling, No vertigo, No balance problems Psychiatric: No depression symptoms, No anhedonism, No anxiety, No insomnia, No substance abuse Heme: No abnormal bleeding/bruising, No clotting problems, No swollen lymph nodes, No night sweats Endo: No fatigue, No excessive thirst, No excessive urination Skin: No rash, No itch, No new/changing skin lesions, No color change, No bleeding Objective Vital Signs Date Time Temp Pulse Resp B/P (MAP) Pulse Ox O2 Delivery O2 Flow Rate FiO2 09/22/16 07:45 92 Room Air 09/22/16 07:42 36.6 86 16 135/79 (97) 92 Room Air 09/22/16 03:15 36.8 94 18 121/73 (89) 92 Room Air 09/21/16 23:59 Room Air 09/21/16 22:58 36.6 92 18 118/70 (86) 94 Room Air 09/21/16 19:47 36.7 81 18 130/75 (93) 96 Room Air 09/21/16 19:40 36.5 82 18 122/72 (89) 97 Room Air 09/21/16 16:26 36.4 88 18 144/72 (96) 96 Room Air 09/21/16 15:15 Room Air 09/21/16 14:01 92 18 126/73 (90) 09/21/16 13:09 71 137/79 (98) 09/21/16 12:03 36.6 73 16 114/68 (83) 97 Nasal Cannula 2.0 Physical Exam General Appearance: WD/WN, no apparent distress, + obese Eyes: normal inspection, PERRL, EOMI, sclerae normal ENT: normal ENT inspection, hearing grossly normal, pharynx normal Neck: supple, no adenopathy, thyroid normal, no JVD, no carotid bruits, trachea midline Respiratory/Chest: chest non-tender, lungs clear, normal breath sounds, no respiratory distress, no accessory muscle use Cardiovascular: regular rate, rhythm, no edema, no gallop, no JVD, no murmur Abdomen: normal bowel sounds, non tender, soft, no organomegaly, no pulsatile mass Extremities: normal range of motion, non-tender, normal inspection, no pedal edema, no calf tenderness, normal capillary refill, pelvis stable Neurologic/Psychiatric: underwater roboticist II-XII nml as tested, no motor/sensory deficits, alert, normal mood/affect, oriented x 3 Skin: normal color, warm/dry, no rash Lymphatic: no adenopathy Laboratory Results Last 24 Hours Test 09/21/16 12:07 09/21/16 12:25 09/21/16 17:14 09/21/16 21:40 Bedside Glucose 218 mg/dl 180 mg/dl 184 mg/dl White Blood Count 9.26 K/uL Red Blood Count 3.38 M/uL Hemoglobin 10.5 g/dL Hematocrit 31.7 % Mean Corpuscular Volume 93.8 fL Mean Corpuscular Hemoglobin 31.1 pg Mean Corpuscular Hemoglobin Concent 33.1 g/dl Platelet Count 240 K/uL Mean Platelet Volume 10.1 fL Neutrophils (%) (Auto) 90.2 % Lymphocytes (%) (Auto) 7.6 % Monocytes (%) (Auto) 1.2 % Eosinophils (%) (Auto) 0.5 % Basophils (%) (Auto) 0.2 % Neutrophils # (Auto) 8.35 K/uL Lymphocytes # (Auto) 0.70 K/uL Monocytes # (Auto) 0.11 K/uL Eosinophils # (Auto) 0.05 K/uL Basophils # (Auto) 0.02 K/uL RDW Standard Deviation 45.1 fL RDW Coefficient of Variation 13.2 % Immature Granulocyte % (Auto) 0.3 % Immature Granulocyte # (Auto) 0.03 K/uL Sodium Level 138 mmol/L Potassium Level 3.9 mmol/L Chloride Level 103 mmol/L Carbon Dioxide Level 27 mmol/L Anion Gap 8.0 mmol/L Blood Urea Nitrogen 21 mg/dl Creatinine 1.20 mg/dl Est Creatinine Clear Calc Drug Dose 55.0 ml/min Estimated GFR () 56.1 Estimated GFR (Non- 48.4 BUN/Creatinine Ratio 17.2 Random Glucose 202 mg/dl Estimated Average Glucose 154 mg/dl Hemoglobin A1c 7.0 % Calcium Level 8.9 mg/dl Hepatitis C Antibody Screen NEG Test 09/22/16 07:59 09/22/16 09:35 Bedside Glucose 166 mg/dl White Blood Count 10.60 K/uL Red Blood Count 3.47 M/uL Hemoglobin 10.5 g/dL Hematocrit 32.2 % Mean Corpuscular Volume 92.8 fL Mean Corpuscular Hemoglobin 30.3 pg Mean Corpuscular Hemoglobin Concent 32.6 g/dl RDW Standard Deviation 44.6 fL RDW Coefficient of Variation 13.3 % Platelet Count 298 K/uL Mean Platelet Volume 10.0 fL Sodium Level 137 mmol/L Potassium Level 3.8 mmol/L Chloride Level 100 mmol/L Carbon Dioxide Level 27 mmol/L Anion Gap 10.0 mmol/L Blood Urea Nitrogen 20 mg/dl Creatinine 1.20 mg/dl Est Creatinine Clear Calc Drug Dose 55.0 ml/min Estimated GFR () 56.1 Estimated GFR (Non- 48.4 BUN/Creatinine Ratio 16.7 Random Glucose 203 mg/dl Calcium Level 9.0 mg/dl Assessment and Plan 61 y/o female with a history of hypertension, diabetes mellitus type 2, and arthritis who presents s/p umbilical hernia repair with mesh with Dr. Johnson on 09/21 Hospitalist team was requested for medical management. -Pain management, DVT prophylaxis, and PT/OT and discharge plan as per primary team -POD #1 HTN--stable - Restart losartan for now until renal function checked and stable. - Restart chlorthalidone upon discharge -Cover with hydralazine 10 mg IV q6h prn SBP >180 Diabetes mellitus type 2--Last HgbA1c checked in 2013 was 6.8. Pt not on any meds for this, stable -Insulin sliding scale -Check BSGs q ac and qhs -Check HgbA1c Nausea -Zofran 4 mg IV q6h prn nausea Arthritis--stable -Hold diclofenac for now, pain management per primary team as above Continued [facility] stay due to: home environment unsafe for pt Discharge planning: home
[2016-09-22 11:51] VITALS: BP 116/72; PULSE 88; TEMP 36.9; O2SAT 96
[2016-09-22 15:11] VITALS: BP 121/64; PULSE 84; TEMP 37; O2SAT 96
[2016-09-22 23:04] VITALS: BP 118/69; PULSE 84; TEMP 36.8; O2SAT 97
[2016-09-23] MEDS ORDERED: HYDR-5688 PO (06:05)
[2016-09-23] MEDS ORDERED: CIPR-255 PO (06:05)
--- NOTE | 2016-09-23 06:07 | Discharge Instructions ---
Discharge Instructions Date of Service Sep 23, 2016. Admission Reason for Admission: Umbilical Hernia Discharge Discharge Diagnosis / Problem: umbilical hernia Discharge Goals Goal(s): Decrease discomfort, Improve function, Improve disease control Activity Recommendations Activity Limitations: as noted below Lifting Limitations: no more than 10 pounds Exercise/Sports Limitations: until after follow-up appointment May Resume Sexual Activity: when tolerated Shower/Bathe: tomorrow Driving or Machine Use: one week SPECIAL CARE INSTRUCTIONS: * Cover incisions and change daily for comfort/drainage. * Empty drain 2-3 times per day and record. avoid constipation- may use Senokot S and Milk of magnesia twice daily as directed on the package * May use ibuprofen for pain as tolerated. * Expect some swelling and bruising. Call your doctor if: * Temperature above 101 degrees * Pain not relieved by pain medicine ordered * There is increased drainage or redness from any incision * You have any unanswered questions or concerns [phone]. FOLLOW UP VISIT: If not already scheduled, please call the office for a follow-up visit. for this Monday 09/25- drain removal OFFICE PHONE NUMBER: Dr. Johnson Office . Current Hospital Diet Patient's current hospital diet: Diabetes Type 2 Diet Discharge Diet Recommended Diet: Regular Diet Procedures Procedures Performed: Open repair umbilical hernia with mesh Pending Studies Studies pending at discharge: no Laboratory Results Hemoglobin A1c Test 09/21/16 12:25 Range/Units Estimated Average Glucose 154 mg/dl Hemoglobin A1c 7.0 H 4.5-5.6 % Medical Emergencies . Who to Call and When: Medical Emergencies: If at any time you feel your situation is an emergency, please call 911 immediately. . Non-Emergent Contact Non-Emergency issues call your: Primary Care Provider, Surgeon . "Provider Documentation" section prepared by Elgin Johnson. . VTE Core Measure Inpt VTE Proph given/why not?: SCD's
--- NOTE | 2016-09-23 06:57 | DISCHARGE SUMMARY ---
PRINCIPAL DIAGNOSIS: Umbilical hernia. PROCEDURES: The patient underwent open umbilical hernia repair with mesh. HISTORY OF PRESENT ILLNESS: The patient is a 61-year-old female with a very large umbilical hernia. HOSPITAL COURSE: The patient was brought in the hospital on 09/21/2016 where she underwent open umbilical hernia with mesh application. The patient did well with the surgery and has advanced in both diet and activity and was felt stable for discharge home today. She does have a drain in place. She will be seen in the office in approximately 2 days for drain removal and checkup.
[2016-09-23 07:31] VITALS: BP 108/72; PULSE 84; TEMP 36.5; O2SAT 93
[2016-09-23 07:36] VITALS: O2SAT 93
[2016-09-23 07:58] LABS: HEMATOCRIT 31.6 % (37-47); MEAN CELL VOLUME 94.9 fL (80-100); MEAN CORPUSCULAR HEMOGLOBIN 30.3 pg (25-34); MEAN PLATELET VOLUME 10.2 fL (7.4-10.4); PLATELET COUNT 276 K/uL (130-400); RED BLOOD COUNT 3.33 M/uL (4.2-5.4); WHITE BLOOD COUNT 7.91 K/uL (4.8-10.8)
[2016-09-23] MEDS: INSULIN ASPART 100 UNITS/ML 3 ML PEN SC SCH (08:00)
[2016-09-23] MEDS: CLINDAMYCIN IV 600 MG in DEXTROSE 5% ADD-VANTAGE 50ML 50 ML IV SCH (08:12)
[2016-09-23 08:30] LABS: BUN/CREATININE RATIO 22.6 (10-20); CREATININE 1.2 mg/dl (0.60-1.20); POTASSIUM 3.8 mmol/L (3.5-5.1)
[2016-09-23 08:47] LABS: CALCIUM 8.4 mg/dl (8.5-10.1)
[2016-09-23] MEDS: DOCUSATE SODIUM/SENNA 50/8.6MG TAB PO SCH (09:00)
[2016-09-23] MEDS: MAGNESIUM HYDROXIDE SUSP 30 ML UDC PO SCH (09:00)
[2016-09-23 10:11] VITALS: BP 108/72; PULSE 84; TEMP 36.5; O2SAT 93
== END 2016-09-23 10:30 | disposition home or self-care (01) | DRG 354 ==
LOC: C.ACU 06:20 → C.MSN 09:53 → ENRESERV 10:12 → OBSVTOIN 09-22 06:22
PROVIDERS: ADMIT Surgery; ATTEND Surgery
PROC: 0WUF0JZ Supplement Abdominal Wall with Synthetic Substitute, Open Approach (ICD-10-PCS; principal; 2016-09-21 08:05)
PROC: 0WQF0ZZ Repair Abdominal Wall, Open Approach (ICD-10-PCS; principal; 2016-09-21 08:05)
DX: K42.9 Umbilical hernia without obstruction or gangrene (principal); Z68.43 Body mass index [BMI] 50.0-59.9, adult; J34.2 Deviated nasal septum; E11.21 Type 2 diabetes mellitus with diabetic nephropathy; E66.01 Morbid (severe) obesity due to excess calories; Z80.3 Family history of malignant neoplasm of breast; E86.0 Dehydration; J45.909 Unspecified asthma, uncomplicated; M19.90 Unspecified osteoarthritis, unspecified site

== ENCOUNTER 2019-04-25 05:10 | Inpatient (IN) ==
--- NOTE | 2019-03-23 09:47 | PAT Medication Instructions ---
Medication Instructions Date of Service March 23, 2019 Home Medications chlorthalidone 25 mg PO QPM diclofenac sodium 75 mg PO BID losartan 100 mg PO QPM ASK your surgeon for instructions diclofenac sodium 75 mg PO BID Take evening before surgery chlorthalidone 25 mg PO QPM losartan 100 mg PO QPM Other Notes If you have any questions please call us at [phone] or [phone] or [phone] or [phone]
--- NOTE | 2019-03-27 14:30 | Anesthesiology Consultation ---
Date of Service March 27, 2019 Assessment & Plan (1) Encounter for pre-operative examination: - Diabetes: currently being managed with diet/exercise alone. Most recent HGBA1C increased at 7.6% on 03/08/19 labs. Patient will be seeing PCP for preop trena luation/to discuss if medication additions to be done in regards to diabetic management. Surgeon office made aware. Check BSG AM DOS. - Awaiting surgeon-ordered PCP preop evaluation (PSH)- not scheduled yet per patient/also, will need to see if diabetic medication initiation being made prior to surgery or if continuing diet/exercise management. Chart Review Chart Review: Patient seen in Pre Admission Testing Teaching & Discussion Pre-Anesthesia Teaching/Discussion Notes: Instructed NPO after midnight before surgery,except medications with 15 cc of water. Medication instructions provided according to the PAT guidelines. History Surgery Operation Date: 04/25/19 07:00 Proposed Procedures p Right Total Knee Arthroplasty - Yonatan Keene MD Height/Weight Height: 4 ft 11.5 in Weight: 111.6 kg Allergies Allergy/AdvReac Type Severity Reaction Status Date / Time Penicillins Allergy Mild RASH Verified 03/20/19 08:30 metformin AdvReac Unknown SEVERE GI Verified 03/20/19 08:30 UPSET morphine AdvReac Unknown VOMITING Verified 03/20/19 08:30 Medications Home Medications Medication Instructions Recorded Confirmed Last Taken chlorthalidone 25 mg PO QPM 03/20/19 03/20/19 Unknown diclofenac sodium 75 mg PO BID 03/20/19 03/20/19 Unknown losartan 100 mg PO QPM 03/20/19 03/20/19 Unknown Past Medical History Medical History Anemia chronic/no hx of blood transfusion Diabetes Hypertension Morbid obesity Osteoarthritis Spinal stenosis Exercise / Class Metabolic Activity III < 4 Walking/Shop/Light housework (uses cane PRN ) Past Family History Family History Mother Family history of diabetes mellitus Past Surgical History Surgical History History of lumbar fusion History of tooth extraction History of tubal ligation History of umbilical hernia repair Open umbilical hernia repair: 09/21/16: Grade 2 view, MAC#3, ETT 7.5 at [facility] (weight at time: 114kg) Past Anesthesia History No Hx of Anesthesia Complications (except PONV) and No Family Hx of Anesthesia Complications History of PONV No Hx of Motion Sickness and History of PONV Social History Smoking Status: Never smoker Do You Dip or Chew Tobacco: No Hx Alcohol Use: No Hx Substance Use: No substance use type: does not use Review of Systems Rare reflux. Patient denies chest pain, shortness of breath, cough, wheezing, palpitations. Physical Exam Vital Signs VITALS BP 133/78 P 82 TEMP 98.0 SP02 96%RA RESP 16 PHYSICAL Full neck and c-spine range of motion. Full TMJ range of motion. TMD 2.5 finger breaths (difficult to palpate) Mallampati Score 3 Dentition: chipped upper front left Lungs: clear throughout to auscultation Cardiac: regular rate and rhythm, no murmurs noted Spine: normal Carotid arteries: negative bruit Extremities: no edema Testing Laboratory Results PT 10.8 Seconds (9.0-12.0) 03/27/19 14:52 INR 1.1 (0.9-1.1) 03/27/19 14:52 APTT 27.7 Seconds (21.0-31.0) 03/27/19 14:52 Blood Type O Positive 03/27/19 14:52 Antibody Screen NEGATIVE 03/27/19 14:52 03/08/19 WBC 8.47 H/H 10.7/31.9 PLATELETS 283 SODIUM 141 POTASSIUM 4.1 CHLORIDE 105 CO2 26 BUN 10 CREATININE 1.2 GLUCOSE 176 HGBA1C 7.6% (surgeon office made aware) Average estimated glucose: 171 Electrocardiogram Date: 03/27/19 NSR at 85bpm.
[2019-03-27 16:21] LABS: INR 1.1 (0.9-1.1); Partial Thromboplastin Time 27.7 Seconds (21.0-31.0); Prothrombin Time 10.8 Seconds (9.0-12.0)
[~2019-04-25 05:10] MED LIST changes: +CEFAZOLIN: ALLERGY NOTED TO ORDERED MEDICATION SCH; -CLINDAMYCIN 900MG IV SCH; -CLINDAMYCIN IV 900 MG in DEXTROSE 5% ADD-VANTAGE 100ML 100 ML IV SCH; -DICL1TAB5 PO; -HYG/25 PO; -LACTATED RINGER'S 1000ML 1,000 ML IV SCH; -LOSA50TA6 PO; -SALI1SPR3 NAE
[2019-04-25] MEDS ORDERED: CEFAZOLIN 2000MG 2,000 MG/15 ML SYR IV SCH (06:00)
[2019-04-25] MEDS ORDERED: ROPIVACAINE 0.5% HCL/PF 150 MG, BUPIVACAINE 0.5% MPF 30 ML, EPINEPHrine 0.15 MG, Ketoro... INFIL SCH (06:00)
[2019-04-25] MEDS ORDERED: LR 500ML BOLUS, THEN 15ML/HR IV SCH (06:00)
[2019-04-25] MEDS ORDERED: SCOPOLAMINE 1.5 MG TDSY TD SCH (06:00)
[2019-04-25] MEDS ORDERED: TRANEXAMIC ACID 1,000 MG **IV Intra-op IV SCH (06:00)
[2019-04-25] MEDS ORDERED: TRANEXAMIC ACID 1,000 MG **IV Pre-op IV SCH (06:00)
[2019-04-25] MEDS ORDERED: LR 60ML/HR IV SCH (06:00)
[2019-04-25] MEDS ORDERED: CeleBREX 200 MG CAP PO SCH (06:00)
[2019-04-25] MEDS ORDERED: BUPIVACAINE 0.5 % 5 MG/1 ML PF 10ML VIAL ONE (06:19)
[2019-04-25] MEDS ORDERED: ROPIVACAINE 0.5% 5 MG/ML 30 ML VIAL ONE (06:19)
[2019-04-25] MEDS ORDERED: EPINEPHrine INJ 1 MG/ML AMP ONE (06:20)
[2019-04-25] MEDS ORDERED: fentaNYL citrate 100 MCG/2 ML VIAL ONE (06:27)
[2019-04-25] MEDS ORDERED: MIDAZOLAM HCL 1 MG/ML 2ML VIAL ONE ×2 (06:27)
--- NOTE | 2019-04-25 06:32 | History & Physical Bridge Note ---
Date of Service April 25, 2019 History & Physical Bridge Note I have examined the patient, reviewed the History & Physical and in the interval since the performance of the History & Physical I have noted the following changes of clinical significance: no changes noted
[2019-04-25] MEDS ORDERED: ORTHO JOINT ANESTHETIC ONE (06:50)
[2019-04-25] MEDS ORDERED: PROPOFOL IV EMULSION 10 MG/ML 20 ML VIAL IV ONE ×3 (07:15→08:59)
[2019-04-25] MEDS ORDERED: ONDANSETRON INJ 2 MG/ML 2 ML VIAL ONE (08:23)
[2019-04-25] MEDS ORDERED: PHENYLEPHRINE HCL 10 MG/ML VIAL ONE (08:23)
[2019-04-25] MEDS ORDERED: FLUMAZENIL 0.1 MG/1 ML 10 ML VIAL IV PRN (10:12)
[2019-04-25] MEDS ORDERED: ONDANSETRON INJ 2 MG/ML 2 ML VIAL IV PRN ×2 (10:12→10:31)
[2019-04-25] MEDS ORDERED: ePHEDrine sulfate 50 MG/ML AMP IV PRN (10:12)
[2019-04-25] MEDS ORDERED: NALOXONE HCL 0.4 MG/1 ML VIAL/CARP IV PRN ×2 (10:12→10:31)
[2019-04-25] MEDS ORDERED: PROMETHAZINE HCL 12.5 MG in SODIUM CHLORIDE 0.9% 50 ML IV PRN (10:12)
[2019-04-25] MEDS ORDERED: fentaNYL citrate 100 MCG/2 ML VIAL IV PRN (10:12)
[2019-04-25] MEDS ORDERED: ATROPINE SULFATE 0.1 MG/ML 10ML SYR IV PRN (10:12)
--- NOTE | 2019-04-25 10:13 | Post Operative Brief Note ---
Immediate Post Op Note v1 Date of Surgery April 25, 2019 Pre & Post Diagnosis Operation Date: 04/25/19 07:00 Pre-Op Diagnosis: Right Knee Osteoarthritis Post-Op Diagnosis: Right Knee Osteoarthritis I identified the patient and participated in the time-out.: Yes Procedure Operation Date: 04/25/19 07:00 Actual Procedures p Right Total Knee Arthroplasty(Right) - Yonatan Keene MD Surgeon Yonatan Keene MD Exhaust Equipment Operator Karo Nagy PA-C (No fellow avail) Estimated Blood Loss 100 Findings Consistent with Post-Op Diagnosis Fluids 1000 cc Specimens Right knee contents Anesthesia Type MAC Spinal Regional Complications none
--- NOTE | 2019-04-25 10:15 | Operative Report ---
Post Operative Report Pre & Post Diagnosis Operation Date: 04/25/19 07:00 Pre-Op Diagnosis: Right Knee Osteoarthritis Post-Op Diagnosis: Right Knee Osteoarthritis I identified the patient and participated in the time-out.: Yes Procedure Operation Date: 04/25/19 07:00 Actual Procedures p Right Total Knee Arthroplasty(Right) - Yonatan Keene MD Surgeon Yonatan Keene MD Ship Boss Karo Nagy PA-C (No fellow avail) Estimated Blood Loss 100 Findings See Below Examined Under Anesthesia: ROM -- There was 5 degrees to 90 degrees of flexion Ligamentous examination -- revealed stable Nayana, posterior drawer, varus and valgus stress at 0 and 30 degrees. Outerbridge Type IV changes of all 3 compartments. The synovium had an inflammatory texture. There were multiple loose bodies. Post-op ROM 0-90 degrees. Fluids 1000 cc Specimens Right knee contents Drains n/a Anesthesia Type MAC Spinal Regional Complications none Indications This is a 63-year-old female who has clinical and radiographic findings consistent with osteoarthritis of the a right knee. I recommended that a right total knee replacement be performed. The patient understands the risks of surgery, which include but not limited to: bleeding, infection, re-operation, damage to nerves and arteries, continued knee pain, knee stiffness, DVT, and . The patient understands all of these instructions and explanations, all of his questions have been satisfactorily addressed and the patient has elected to proceed. Informed consent was signed. Description of Procedure IMPLANTS: 1. Femur: Triathlon #3 Right PS. 2. Tibia: Triathlon #3 [place]. 3. Insert: Triathlon #3 x 16 mm PS X3 poly. 4. Patella: Triathlon S27 x 8 mm X3 poly. 5. Simplex cement. Procedure: The patient was taken to the Operating Room and placed in the supine position after spinal and adductor canal nerve block was administered. My initials and a multidisciplinary time-out were used to identify the right leg as the correct operative limb. A tourniquet was placed high in the thigh. Prior to the incision, 2 grams of intravenous Ancef were given. The right leg was then prepped and draped in a standard sterile fashion. An Esmarch was used to exsanguinate the leg and the tourniquet was inflated to 250 mmHg. The planned mid-line 20 cm incision was created exposing the extensor mechanism. The medial parapatellar arthrotomy was made and the patella was everted. The patella was addressed first. It was prepared by reaming from 22 mm down to 14 mm. An S27 button was found to fit best. The peg holes were made in the standard fashion. The osteophytes were removed with a combination of rongeur and pituitary. The femur was addressed next and the guide jeramy was placed intramedullary. The initial cutting block was placed with 5 degrees of valgus and removing 10 mm for the anterior cut. The cut was made and the 4-in-1 cutting block for a size 3 femur was placed. These cuts and the cuts to place the box were made in the standard fashion. Our attention was then drawn to the tibia cut with the external cutting guide, taking 4 mm from the medial low side. There was sufficient extension and flexion gap to fit a 16 mm spacer. A #3 Tibial baseplate fit well. A trial with a 16 mm spacer showed excellent stability in both flexion and extension, with good ligament balance. Range of motion of 0-90 degrees. The tibial baseplate was pinned and the final preparation for the keel and stem was made. All the trial components were tested again, with good stability and thumbs free tracking of the patella. All components were removed. The tourniquet was deflated. Hemostasis was obtained. 90 ml of total knee cocktail were injected into the soft tissues and periosteum. A bone plug was placed in the femur and covered with bone wax. After a 15 minute break, the limb was exsanguinated again and the tourniquet was re-inflated. All surfaces were copiously irrigated prior to placement of the components. The femoral component and Tibial baseplate were cemented in place and a 16 mm trial placed. With the same batch of cement the patellar button was placed using Simplex cement. Again with the 16 mm trial poly the range of motion and stability were unchanged. Once the cement had cured, the 16 mm X3 poly was placed. The extensor mechanism was closed with 1-0 and 0 Vicryl with the knee bent approximately 60 degrees in a standard fashion. The peritenon and deep fascia was closed with 2-0 Vicryl. The subcutaneous layer was closed with 3-0 Vicryl. The skin was closed with Zipline. The limb was cleaned and dried. 4x4 dressing was placed over top followed by ABDs, sterile Webril, and a foot to thigh Fabrizio bandage. The patient was then transferred to the Recovery Room in stable condition. The sponge and needle counts were correct. POST-OP INSTRUCTIONS: The patient will be WBAT. The patient will be admitted to the hospital. The patient will use the knee immobilizer when ambulating and standing until good quad control is achieved. Labs will be obtained during the stay. DVT prophylaxis will included aspirin for 6 more weeks, TEDs, and mechanical foot pumps. The dressing will be changed prior to their discharge or postop day #2 and covered with a Silverlon dressing, whichever comes first. I attest to the content of the Intraoperative Record and any orders documented therein. Any exceptions are noted below.
[2019-04-25] MEDS ORDERED: MAGNESIUM HYDROXIDE SUSP 30 ML UDC PO PRN (10:31)
[2019-04-25] MEDS ORDERED: METOCLOPRAMIDE HCL INJ 5 MG/ML 2 ML VIAL IV PRN (10:31)
[2019-04-25] MEDS ORDERED: bisacodyL 10 MG SUPP PR PRN (10:31)
[2019-04-25] MEDS ORDERED: HYDROmorphone INJ 1 MG/ML SYRINGE IV PRN (10:31)
[2019-04-25] MEDS ORDERED: DiphenhydrAMINE HCL 50 MG/ML VIAL IV PRN (10:31)
[2019-04-25] MEDS ORDERED: ALUMINUM/MAGNESIUM SUSP 30 ML UDC PO PRN (10:31)
--- NOTE | 2019-04-25 10:34 | Operative Report ---
Post Operative Report Pre & Post Diagnosis Operation Date: 04/25/19 07:00 Pre-Op Diagnosis: Right Knee Osteoarthritis Post-Op Diagnosis: Right Knee Osteoarthritis I identified the patient and participated in the time-out.: Yes Procedure Operation Date: 04/25/19 07:00 Actual Procedures p Right Total Knee Arthroplasty(Right) - Yonatan Keene MD Surgeon YONATAN KEEEN MD Animal Eviscerator Karo Nagy PA-C (No fellow avail) Estimated Blood Loss 100 Findings Consistent with Post-Op Diagnosis Specimens bone and soft tissue Complications none Indications See Dr Keene operative report for full details. Description of Procedure See Dr Keene operative report for full details. I was first grade teacher during entire case to include prepping, draping, limb and instrument handling, wound closure, dressings. I attest to the content of the Intraoperative Record and any orders documented therein. Any exceptions are noted below.
--- NOTE | 2019-04-25 10:50 | Anesthesiology Progress Note ---
Date of Service April 25, 2019 Anesthesia Post Procedure Vital Signs Vital Signs: Temp Pulse Pulse Resp BP Pulse Ox 04/25/19 10:40 82 17 129/80 100 04/25/19 10:30 85 17 131/88 100 04/25/19 10:20 36.4 C L 53 L 14 134/76 98 04/25/19 05:52 36.8 C 95 H 18 153/81 H 98 Pain Intensity Right Knee: Pain Intensity: 0 Transfer of Care Handoff Completed per policy Notes Mental Status: alert / awake / arousable Patient Amnestic to Procedure: Yes Nausea / Vomiting: adequately controlled Pain: adequately controlled Airway Patency, RR, SpO2: stable & adequate BP & HR: stable & adequate Hydration State: stable & adequate Neuraxial Anesthesia: was administered and sensory block is resolving Anesthetic Complications: no major complications apparent
--- NOTE | 2019-04-25 11:11 | XRay Report ---
RIGHT KNEE 2 VIEWS History: Right total knee arthroplasty. Degenerative arthritis. Postop. FINDINGS: The patient is status post a right total knee arthroplasty. The hardware is intact. No frac ture or dislocation. IMPRESSION: Right total knee arthroplasty. No evidence for hardware complication. ACT 112: Negative or not required by law. Electronically signed by: Santana Edgar M.D. 04/25/2019 11:09 AM
[2019-04-25] MEDS: ACETAMINOPHEN 500 MG TAB PO SCH ×2 (13:56→20:38)
[2019-04-25] MEDS: CEFAZOLIN 2000MG 2,000 MG/15 ML SYR IV SCH ×2 (14:14→22:17)
--- NOTE | 2019-04-25 14:44 | Orthopedic Progress Note ---
Date of Service April 25, 2019 Assessment & Plan (1) Knee osteoarthritis: POD #0, s/p R TKA. Resume diet. Pain control. Change dressing to Silverlon POD #2 or prior to discharge, whichever comes first. WBAT: Use knee immobilizer until good quad control/48 hours with ambulation. Use walker. Assistance as need. PT/OT. DVT Prophylaxis: TEDs for 3 weeks. Foot pumps while in hospital. ASA BID for 6 weeks. D/C Planning. Present on Admission?: Yes Subjective Doing alright, with anticipated right leg pain, pointing to her quad. Review of Systems Review of Systems: All systems reviewed & are unremarkable except as noted in HPI & below Physical Exam Physical Exam: RLE: Dressing clean, dry, intact. Sensation to light touch is intact distally. Wiggling toes up and down. Brisk cap refill less than 2 seconds. Results & Data Vital Signs (Past 12 Hours) Vital Signs Temp Pulse Pulse Resp BP Pulse Ox 04/25/19 13:46 75 18 114/63 96 04/25/19 12:33 59 L 16 109/57 L 92 04/25/19 11:46 36 C L 92 H 18 157/86 H 99 04/25/19 11:15 36.9 C 86 18 155/82 H 97 04/25/19 11:00 36.6 C 83 15 140/89 98 04/25/19 10:50 36.6 C 87 20 139/77 100 04/25/19 10:40 82 17 129/80 100 04/25/19 10:30 85 17 131/88 100 04/25/19 10:20 36.4 C L 53 L 14 134/76 98 04/25/19 05:52 36.8 C 95 H 18 153/81 H 98 Diagnostic Findings AP & Lateral Right knee showed evidence of recent cemented right TKA. Components in good position.
[2019-04-25] MEDS: CHECK SCOPOLAMINE PATCH PLACEMENT SCH ×2 (15:32→23:30)
[2019-04-25] MEDS: SODIUM CHLORIDE 0.9% 1000ML 1,000 ML IV SCH ×2 (15:39→21:48)
[2019-04-25] MEDS: FERROUS GLUCONATE 324 MG TAB PO SCH (16:28)
[2019-04-25] MEDS: ASCORBIC ACID 500 MG TAB PO SCH (16:28)
[2019-04-25] MEDS: DOCUSATE SODIUM 100 MG CAP PO SCH (20:33)
[2019-04-25] MEDS: ASPIRIN 81 MG ECTAB PO SCH (20:35)
[2019-04-25] MEDS: SENNA 8.6 MG TAB PO SCH (20:36)
[2019-04-25] MEDS: LOSARTAN POTASSIUM 50 MG TAB PO SCH (20:37)
[2019-04-25] MEDS: CHLORTHALIDONE 25 MG TAB PO SCH (20:38)
[2019-04-25] MEDS ORDERED: PHARMACY GLYCEMIC MGMT CONSULT PRN (22:46)
[2019-04-25] MEDS ORDERED: GLUCOSE 10 TABS/TUBE PO PRN (23:00)
[2019-04-25] MEDS ORDERED: DEXTROSE 50% 50 ML SYRINGE IV PRN (23:00)
[2019-04-25] MEDS ORDERED: GLUCAGON FOR INJ 1 MG VIAL SQ PRN (23:00)
[2019-04-25] MEDS ORDERED: CARBOHYDRATES FOR HYPOGLYCEMIA PO PRN (23:00)
[2019-04-25] MEDS ORDERED: GLUCOSE 40% GEL 15 GM TUBE PO PRN (23:00)
[2019-04-25] MEDS: INSULIN ASPART 100 UNITS/ML 3 ML PEN SC SCH (23:27)
[2019-04-26] MEDS ORDERED: INSULIN ASPART 100 UNITS/ML 3 ML PEN SC SCH (02:00)
[2019-04-26] MEDS: OXYCODONE HCL IR 5 MG TAB (IMMEDIATE RELEASE) PO PRN ×5 (03:24→23:12)
[2019-04-26] MEDS: ACETAMINOPHEN 500 MG TAB PO SCH ×3 (05:28→21:15)
[2019-04-26 05:34] LABS: Hematocrit (blood only) 27.7 % (37-47); Hemoglobin 9.4 g/dL (12.0-16.0); Mean Corpuscular Hemoglobin 31.9 pg (25-34); Mean Corpuscular Hgb Conc 33.9 g/dL (32-36); Mean Corpuscular Volume 93.9 fL (80-100); Mean Platelet Volume 10.3 fL (7.4-10.4); Platelet Count 229 K/uL (130-400); RDW Coefficient of Variation 13.3 % (11.5-14.5); RDW Standard Deviation 45.8 fL (36.4-46.3); Red Blood Count 2.95 M/uL (4.2-5.4); White Blood Count 10.11 K/uL (4.8-10.8)
[2019-04-26 05:59] LABS: BUN Creatinine Ratio 18.2 (10-20); Calcium 8.3 mg/dl (8.5-10.1); Creatinine Clr Calc Pharmacy 45.7 ml/min; Est GFR (African American) 46.3; Potassium 3.9 mmol/L (3.5-5.1)
[2019-04-26] MEDS ORDERED: INSULIN GLARGINE SOLOSTAR 100 UNITS/ML 3 ML PEN SC SCH (09:00)
[2019-04-26] MEDS: FERROUS GLUCONATE 324 MG TAB PO SCH ×2 (09:09→16:34)
[2019-04-26] MEDS: DOCUSATE SODIUM 100 MG CAP PO SCH ×2 (09:09→21:13)
[2019-04-26] MEDS: MULTIVITAMIN TAB PO SCH (09:10)
[2019-04-26] MEDS: ASPIRIN 81 MG ECTAB PO SCH ×2 (09:10→21:13)
[2019-04-26] MEDS: ASCORBIC ACID 500 MG TAB PO SCH ×2 (09:10→16:35)
[2019-04-26] MEDS: INSULIN ASPART 100 UNITS/ML 3 ML PEN SC SCH ×4 (09:14→21:18)
--- NOTE | 2019-04-26 11:41 | Orthopedic Progress Note ---
Date of Service April 26, 2019 Assessment & Plan (1) Knee osteoarthritis: POD #1, s/p R TKA. Resume diet. Pain control. Change dressing to Silverlon POD #2 or prior to discharge, whichever comes first. WBAT: Use knee immobilizer until good quad control/48 hours with ambulation. Use walker. Assistance as need. PT/OT. DVT Prophylaxis: TEDs for 3 weeks. Foot pumps while in hospital. ASA BID for 6 weeks. D/C Planning, planning on d/c to SN[facility]. (2) Morbid obesity: Subjective Right knee pain is tolerable. Review of Systems Review of Systems: All systems reviewed & are unremarkable except as noted in HPI & below Physical Exam Physical Exam: RLE: Neurovascularly intact. Dressing clean, dry, intact. Calf soft, non-tender. Results & Data Vital Signs (Past 12 Hours) Vital Signs Temp Pulse Pulse Resp BP Pulse Ox 04/26/19 07:54 36.9 C 78 14 119/68 97 04/26/19 03:50 36.7 C 81 18 119/59 L 96
--- NOTE | 2019-04-26 14:25 | Pharmacy Report ---
Glycemic Control Consultation - Date of Service April 26, 2019 - Scope Scope: Glycemic Pharmacist consulted by Dr Hendricks on 04/25 for glycemic control and to write orders per [facility] inpatient glycemic control protocol - Objective Weight: 110.667 kg Accuchecks BSG (last 24hrs): 04/25/19 04/25/19 04/25/19 17:02 20:38 23:23 Glucose POC Glucose 240 H 255 H 235 H 04/26/19 04/26/19 04/26/19 02:04 05:02 08:04 Glucose 173 H POC Glucose 184 H 192 H 04/26/19 12:05 Glucose POC Glucose 159 H Laboratory Data (last 24hrs): 04/26/19 05:02 Potassium 3.9 Carbon Dioxide 27 Anion Gap 3.0 Creatinine 1.39 H Est Cr Clr Drug Dosing 45.7 - Recent Pertinent Medications Outpatient Anti-diabetic Regimen: * n/a * A1c = 7.0% 09/21/16 - ordered for tomorrow 04/27 Risk Factors for Insulin Resistance: * Recent Surgery: POD 1 * Diet: T2DM - Assessment & Plan Assessment & Plan: ASSESSMENT: * 63 year old female now s/p R TKA, POD 1. Outside medical clearance indicates A1C fluctuating between 6.7-7.6% this past year however patient not on any pharmacologic agents for diabetes * Pharmacy consulted for glycemic management postop - will utilize basal/bolus dosing. Fasting BSG elevated at 173 mg/dL PLAN FOR INPATIENT GLYCEMIC CONTROL: * Basal insulin * Lantus 15 units daily (~0.2 units/kg) ; started conservatively since insulin naive * Bolus insulin * NovoLog per scale ACHS or Q6hrs while NPO * Goal Range: Low 110 mg/dL - High 150 mg/dL * Correction Factor: 20 mg/dL/unit * Nutritional / Prandial insulin per carb ratio of 1 unit per 7 grams CHO consumed * Please note that the plan above was derived based on current level of insulin resistance and hospital stress. These recommendations are appropriate for inpatient admission only. Plan of care upon discharge will need to be reassessed to avoid potential outpatient hypo/hyperglycemia. Thank you.
--- NOTE | 2019-04-26 16:30 | Orthopedic Progress Note ---
Date of Service April 26, 2019 Assessment & Plan (1) Knee osteoarthritis: POD #1, s/p R TKA. Continue current diet. Continue pain control. Continue Ice. Plan to change dressing to Silverlon POD #2 or prior to discharge, whichever comes first. WBAT: Use knee immobilizer until good quad control/48 hours with ambulation. Use walker. Assistance as need. PT/OT. DVT Prophylaxis: TEDs for 3 weeks. Foot pumps while in hospital. ASA BID for 6 weeks. D/C Planning, planning on d/c to SNF hopefully tomorrow 1-9. Await insurance authorization. (2) Morbid obesity: Subjective Patient resting in bed. Denies f/c/s, s/s of infection, CP, SOB. Pain under better control. Tolerating PO diet. Participated in PT. Has 18 steps at home. Able to do one step today. Anticipating DC to [facility] tomorrow. Has bed, awaiting insurance authorization. Physical Exam Physical Exam: Right knee dressings intact. Ice on knee. Teds donned L LE. B foot pumps donned. NV B LE. Neg homans. Able to wiggle ankles and toes. Sensation intact to light touch. Palpable DP and PT pulses. Results & Data Vital Signs (Past 12 Hours) Vital Signs Temp Pulse Pulse Resp BP BP Pulse Ox 04/26/19 15:42 37.1 C 82 18 115/62 99 04/26/19 12:03 36.7 C 78 12 136/75 96 04/26/19 07:54 36.9 C 78 14 119/68 97 Laboratory Results 04/26/19 04/26/19 04/26/19 Range/Units 12:05 08:04 05:02 WBC (4.8-10.8) K/uL RBC (4.2-5.4) M/uL Hgb (12.0-16.0) g/dL Hct (37-47) % MCV (80-100) fL MCH (25-34) pg MCHC (32-36) g/dL RDW Std Deviation (36.4-46.3) fL RDW Coeff of Siobhan (11.5-14.5) % Plt Count (130-400) K/uL MPV (7.4-10.4) fL Sodium 135 L (136-145) mmol/L Potassium 3.9 (3.5-5.1) mmol/L Chloride 105 (98-107) mmol/L Carbon Dioxide 27 (21-32) mmol/L Anion Gap 3.0 (3-11) BUN 25 H (7-18) mg/dl Creatinine 1.39 H (0.6-1.2) mg/dl Est Cr Clr Drug Dosing 45.7 ml/min Est GFR ( Amer) 46.3 Est GFR (Non-Af Amer) 40.0 BUN/Creatinine Ratio 18.2 (10-20) Glucose 173 H (70-99) mg/dl POC Glucose 159 H 192 H (70-99) Calcium 8.3 L (8.5-10.1) mg/dl 04/26/19 04/26/19 04/25/19 Range/Units 05:02 02:04 23:23 WBC 10.11 (4.8-10.8) K/uL RBC 2.95 L (4.2-5.4) M/uL Hgb 9.4 L (12.0-16.0) g/dL Hct 27.7 L (37-47) % MCV 93.9 (80-100) fL MCH 31.9 (25-34) pg MCHC 33.9 (32-36) g/dL RDW Std Deviation 45.8 (36.4-46.3) fL RDW Coeff of Siobhan 13.3 (11.5-14.5) % Plt Count 229 (130-400) K/uL MPV 10.3 (7.4-10.4) fL Sodium (136-145) mmol/L Potassium (3.5-5.1) mmol/L Chloride (98-107) mmol/L Carbon Dioxide (21-32) mmol/L Anion Gap (3-11) BUN (7-18) mg/dl Creatinine (0.6-1.2) mg/dl Est Cr Clr Drug Dosing ml/min Est GFR ( Amer) Est GFR (Non-Af Amer) BUN/Creatinine Ratio (10-20) Glucose (70-99) mg/dl POC Glucose 184 H 235 H (70-99) Calcium (8.5-10.1) mg/dl 04/25/19 04/25/19 Range/Units 20:38 17:02 WBC (4.8-10.8) K/uL RBC (4.2-5.4) M/uL Hgb (12.0-16.0) g/dL Hct (37-47) % MCV (80-100) fL MCH (25-34) pg MCHC (32-36) g/dL RDW Std Deviation (36.4-46.3) fL RDW Coeff of Siobhan (11.5-14.5) % Plt Count (130-400) K/uL MPV (7.4-10.4) fL Sodium (136-145) mmol/L Potassium (3.5-5.1) mmol/L Chloride (98-107) mmol/L Carbon Dioxide (21-32) mmol/L Anion Gap (3-11) BUN (7-18) mg/dl Creatinine (0.6-1.2) mg/dl Est Cr Clr Drug Dosing ml/min Est GFR ( Amer) Est GFR (Non-Af Amer) BUN/Creatinine Ratio (10-20) Glucose (70-99) mg/dl POC Glucose 255 H 240 H (70-99) Calcium (8.5-10.1) mg/dl
[2019-04-26] MEDS: LOSARTAN POTASSIUM 50 MG TAB PO SCH (21:14)
[2019-04-26] MEDS: CHLORTHALIDONE 25 MG TAB PO SCH (21:14)
[2019-04-26] MEDS: SENNA 8.6 MG TAB PO SCH (21:15)
[2019-04-27] MEDS: ACETAMINOPHEN 500 MG TAB PO SCH (04:58)
[2019-04-27 07:23] LABS: Basophils # (auto) 0.02 K/uL (0-0.2); Basophils % (auto) 0.2 %; Eosinophils # (auto) 0.22 K/uL (0-0.5); Eosinophils % (auto) 2.6 %; Hematocrit (blood only) 27.4 % (37-47); Hemoglobin 9.1 g/dL (12.0-16.0); Immature Granulocytes # (auto) 0.02 K/uL (0.00-0.02); Immature Granulocytes % (auto) 0.2 %; Lymphocytes # (auto) 1.31 K/uL (1.2-3.4); Lymphocytes % (auto) 15.3 %; Mean Corpuscular Hemoglobin 31.5 pg (25-34); Mean Corpuscular Hgb Conc 33.2 g/dL (32-36); Mean Corpuscular Volume 94.8 fL (80-100); Mean Platelet Volume 10.5 fL (7.4-10.4); Monocytes # (auto) 0.87 K/uL (0.11-0.59); Monocytes % (auto) 10.2 %; Neutrophils # (auto) 6.12 K/uL (1.4-6.5); Neutrophils % (auto) 71.5 %; Platelet Count 225 K/uL (130-400); RDW Coefficient of Variation 13.4 % (11.5-14.5); RDW Standard Deviation 46.8 fL (36.4-46.3); Red Blood Count 2.89 M/uL (4.2-5.4); White Blood Count 8.56 K/uL (4.8-10.8)
[2019-04-27 08:14] LABS: Estimated Average Glucose 186 mg/dl; Hemoglobin A1C 8.1 % (4.5-5.6)
[2019-04-27] MEDS ORDERED: INSULIN GLARGINE SOLOSTAR 100 UNITS/ML 3 ML PEN SC SCH (09:00)
[2019-04-27] MEDS: FERROUS GLUCONATE 324 MG TAB PO SCH (09:03)
[2019-04-27] MEDS: ASCORBIC ACID 500 MG TAB PO SCH (09:03)
[2019-04-27] MEDS: MULTIVITAMIN TAB PO SCH (09:03)
[2019-04-27] MEDS: ASPIRIN 81 MG ECTAB PO SCH (09:03)
[2019-04-27] MEDS: DOCUSATE SODIUM 100 MG CAP PO SCH (09:04)
[2019-04-27] MEDS: INSULIN ASPART 100 UNITS/ML 3 ML PEN SC SCH ×2 (09:08→12:31)
[2019-04-27] MEDS: OXYCODONE HCL IR 5 MG TAB (IMMEDIATE RELEASE) PO PRN (09:34)
--- NOTE | 2019-04-27 09:53 | Orthopedic Progress Note ---
Date of Service April 27, 2019 Assessment & Plan (1) Knee osteoarthritis: POD #2, s/p R TKA, Post-op Anemia Hgb 9.1. Asymptomatic. Continue PO ferrous sulfate. Continue current diet. Continue PO pain control. Continue Ice. Changed dressing to Silverlon. WBAT: Can discontinue immobilizer. Walker to ambulate. DVT Prophylaxis: TEDs for 3 weeks. Foot pumps while in hospital. ASA BID for 6 weeks. D/C Planning: to [facility] today after am PT. insurance approved. (2) Morbid obesity: Subjective Patient in chair eating breakfast. in room. Was slightly nauseated this AM. Zofran helped. Pain controlled with PO oxycodone. Had bed side PT. Hasnt had PT for ambulation yet today. Denies f/c/s, S/S of infections, CP, SOB, lightheadedness, or dizziness. No issues with urinating. Ready to be discharged to SNF. Physical Exam Physical Exam: A and O x 3. In good spirits. Right knee dressings removed. Only scant dry blood on post op ABDs. Zip line intact and dry. No s/s of infection. R LE with 1+ PE. L LE with trace PE. B LE NV intact with palpable DP and PT pulses. Neg homans. Calves soft. Sensation intact light touch. Able to wiggle toes and ankles. Results & Data Vital Signs (Past 12 Hours) Vital Signs Temp Pulse Pulse Resp BP BP Pulse Ox 04/27/19 07:41 36.9 C 83 16 119/69 96 04/26/19 22:45 37 C 90 18 111/66 95 Laboratory Results 04/27/19 04/27/19 04/27/19 Range/Units 08:34 06:36 06:36 WBC 8.56 (4.8-10.8) K/uL RBC 2.89 L (4.2-5.4) M/uL Hgb 9.1 L (12.0-16.0) g/dL Hct 27.4 L (37-47) % MCV 94.8 (80-100) fL MCH 31.5 (25-34) pg MCHC 33.2 (32-36) g/dL RDW Std Deviation 46.8 H (36.4-46.3) fL RDW Coeff of Siobhan 13.4 (11.5-14.5) % Plt Count 225 (130-400) K/uL MPV 10.5 H (7.4-10.4) fL Immature Gran % (Auto) 0.2 % Neut % (Auto) 71.5 % Lymph % (Auto) 15.3 % [place] % (Auto) 10.2 % Eos % (Auto) 2.6 % Baso % (Auto) 0.2 % Immature Gran # (Auto) 0.02 (0.00-0.02) K/uL Neut # (Auto) 6.12 (1.4-6.5) K/uL Lymph # (Auto) 1.31 (1.2-3.4) K/uL [place] # (Auto) 0.87 H (0.11-0.59) K/uL Eos # (Auto) 0.22 (0-0.5) K/uL Baso # (Auto) 0.02 (0-0.2) K/uL POC Glucose 180 H (70-99) Estimat Average Glucose 186 mg/dl Hemoglobin A1c 8.1 H (4.5-5.6) % 04/26/19 04/26/19 04/26/19 Range/Units 20:39 17:23 12:05 WBC (4.8-10.8) K/uL RBC (4.2-5.4) M/uL Hgb (12.0-16.0) g/dL Hct (37-47) % MCV (80-100) fL MCH (25-34) pg MCHC (32-36) g/dL RDW Std Deviation (36.4-46.3) fL RDW Coeff of Siobhan (11.5-14.5) % Plt Count (130-400) K/uL MPV (7.4-10.4) fL Immature Gran % (Auto) % Neut % (Auto) % Lymph % (Auto) % [place] % (Auto) % Eos % (Auto) % Baso % (Auto) % Immature Gran # (Auto) (0.00-0.02) K/uL Neut # (Auto) (1.4-6.5) K/uL Lymph # (Auto) (1.2-3.4) K/uL [place] # (Auto) (0.11-0.59) K/uL Eos # (Auto) (0-0.5) K/uL Baso # (Auto) (0-0.2) K/uL POC Glucose 176 H 182 H 159 H (70-99) Estimat Average Glucose mg/dl Hemoglobin A1c (4.5-5.6) %
--- NOTE | 2019-04-27 10:55 | Pharmacy Report ---
Pharmacy Glycemic Short Note 2 - Date of Service April 27, 2019 - Glycemic Short BSG Results (Last 24 hours): 04/26/19 04/26/19 04/26/19 12:05 17:23 20:39 POC Glucose 159 H 182 H 176 H 04/27/19 08:34 POC Glucose 180 H OUTPATIENT ANTIDIABETIC REGIMEN: * NONE ASSESSMENT: * 63 y/o F admitted for R TKA currently with Type 2 DM but not on any anti- diabetic meds [employer]. * Patient received basal insulin with Lantus 15 units and bolus Novolog 31 units yesterday. Total = 46 units of insulin. * Fasting BSG this AM = 180. Lantus 15 units was given this AM as well. * Fasting BSG is high indicating that patient needs outpatient anti-diabetic meds. * Plan for patient to be discharged today. If patient were to stay another day or so, then we would increase her insulin basal and bolus dosing. PLAN FOR INPATIENT GLYCEMIC CONTROL: * Basal insulin: continued today * Lantus 15 units SQ QAM * Bolus insulin: continued * NovoLog per scale ACHS or Q6hrs while NPO * Goal Range: Low 110 mg/dL - High 150 mg/dL * Correction Factor: 20 mg/dL/unit * Nutritional / Prandial insulin per carb ratio of 1 unit per 7 grams CHO consumed PLAN FOR DISCHARGE: * HbA1c = 8.1% on 04/27/19. * Goal A1c for this patient would be less than 7%. * Would recommend starting Metformin ER 500 mg daily with evening meal. Patient experienced GI upset with Metformin in the past. Would trial extended release Metformin at only 500 mg again given with a meal. * Recommend adding Januvia 100 mg PO daily in the morning as an additional agent for diabetes control. This has a low risk of hypoglycemia.
--- NOTE | 2019-04-27 11:38 | Discharge Summary ---
ADMITTING DIAGNOSES: Painful right knee, right knee osteoarthritis. DISCHARGE DIAGNOSES: Right knee osteoarthritis, status post right total knee arthroplasty. CONDITION ON DISCHARGE: Stable. PROCEDURE PERFORMED: Right total knee arthroplasty. CONSULTATION: Anesthesia. HOSPITAL COURSE: A 63-year-old female admitted status post right total knee arthroplasty performed by Dr. Keene on 04/25/2019. The patient recovered well, worked with physical therapy, able to ambulate with the use of walker. The patient did well on p.o. pain medication only requiring 1 dose of IV medication on postop day 0. On postop day 2, she was deemed stable to be discharged to [facility]. Her post-op dressings were removed and Zip line was intact. A silverlon waterproof dressing was applied. While inpatient, the patient's DVT prophylaxis consisted of knee-high JESUS hose, aspirin and foot pumps. She did require Zofran x1 for nausea, which improved. She also had postop anemia with hemoglobin 9.4 on 04/26 and 9.1 on 04/27; however, patient is asymptomatic. The patient and feel comfortable with discharge today and will transport her to [facility]. DISCHARGE INSTRUCTIONS AND MEDICATIONS: The patient is to be discharged to nursing home [facility] by her . Diet is diabetic type 2 diet. Activity, weightbear as tolerated to the right lower extremity, the knee immobilizer can be discontinued. She will use a walker. She will continue with physical therapy at the [facility]. She will be discharged with DVT prophylaxis to consist of aspirin 81 mg twice a day for 6 weeks, JESUS hose to bilateral lower extremities during the day until she follows up in the office in 2 weeks. Incision will remain covered with Silverlon dressing, this is a waterproof dressing, until she follows up with us in 2 weeks. Other medications include ferrous sulfate twice a day, vitamin C twice a day, Zofran as needed for nausea, Colace as needed for constipation, [id number] Tylenol for [id number]-[id number] pain and oxycodone for severe pain. She will resume her home medications, but hold the Voltaren as it is an anti-inflammatory. The plan will be after the nursing home facility, she will be discharged home with home health. She was advised to call the office or return to the Emergency Room for any concerns including redness, swelling, drainage, fever, chills, signs of infection, shortness of breath, or chest pain. The patient is to follow up with our office as instructed 2 weeks postop on 05/08/2019 at 1:00 p.m. Our office number is [phone]. MTDD
== END 2019-04-27 13:28 | DRG 470 ==
LOC: ASU 05:10 → 3E 10:31